=== PATIENT | female | born 1935 | race Caucasian/White ===

== ENCOUNTER 2018-09-23 23:45 | Inpatient (IN) | payer MEDICARE ==
--- NOTE | 2018-09-23 23:54 | ED Physician Chart ---
ED Chief Complaint/HPI - Patient Information Date Seen:: 09/23/18 Time Seen:: 23:40 Chief Complaint:: Agitation History of Present Illness:: onset x 3 days of agitation and hostile behavior; no report of trauma, H/As, SIs , S/T, neck pain, cough, C/P, SOB, Abd. Pain, A/N/V/D/C, fever, chills, or urinary s/s Allergies:: Allergies Allergy/AdvReac Type Severity Reaction Status Date / Time cilostazol [From Pletal] Allergy Verified 09/23/18 23:48 ciprofloxacin [From Cipro] Allergy Verified 09/23/18 23:48 Sulfa (Sulfonamide Allergy Verified 09/23/18 23:48 Antibiotics) [email or web address] Allergy Verified 09/23/18 23:48 Historian:: Patient, EMS Review:: Nurse's Note Reviewed, Old Chart Reviewed, EMS run form Reviewed ED Review of Systems - Review of Systems General/Constitutional: No fever, No chills, No weight loss, No weakness, No diaphoresis, No edema, No loss of appetite Skin: No skin lesions, No rash, No bruising Head: No headache, No light-headedness Eyes: No loss of vision, No pain, No diplopia ENT: No earache, No nasal drainage, No sore throat, No tinnitus Neck: No neck pain, No swelling, No thyromegaly, No stiffness, No mass noted Cardio Vascular: No chest pain, No palpitations, No PND, No orthopnea, No edema Pulmonary: No SOB, No cough, No sputum, No wheezing GI: No nausea, No vomiting, No diarrhea, No pain, No melena, No hematochezia, No constipation, No hematemesis G/U: No dysuria, No frequency, No hematuria, No nacturia [employer]: No vaginal discharge, No abnormal vaginal bleed, No contraction Musculoskeletal: No bone or joint pain, No back pain, No muscle pain Endocrine: No polyuria, No polydipsia Psychiatric: Prior psych history, Depression, Anxiety, No suicidal ideation, No homicidal ideation, No auditory hallucination, No visual hallucination Hematopoietic: No bruising, No lymphadenopathy Allergic/Immuno: No urticaria, No angioedema Neurological: No syncope, No focal symptoms, No weakness, No paresthesia, No headache, No seizure, No dizziness, No confusion, No vertigo ED Past Medical History - Past Medical History Obtainable: Yes Past Medical History: HTN, Dyslipidemia, Arthritis, Dementia Family History: HTN Social History: Non Smoker, No Alcohol, No Drug Use, , Care Facility Surgical History: None Psychiatricy History: Bipolar, Dementia Medication: Reviewed Family Medical History - Family Member Mother History Unknown: Yes ED Physical Exam - Physical Examination General/Constitutional: Awake, Well-developed, well-nourished, Alert, No distress, GCS 15, Non-toxic appearing, Ambulatory Head: Atraumatic Eyes: Lids, conjuctiva normal, PERRL, EOMI Skin: Nl inspection, No rash, No skin lesions, No ecchymosis, Well hydrated, No lymphadenopathy ENMT: External ears, nose nl, TM canals nl, Nasal exam nl, Lips, teeth, gums nl , Oropharynx nl, Tonsils nl Neck: Nontender, Full ROM w/o pain, No JVD, No nuchal rigidity, No bruit, No mass, No stridor Respiratory: Nl effort/Exclusion, Clear to Auscultation, No Wheeze/Rhonchi/Rales Cardio Vascular: RRR, No murmur, gallop, rubs, NL S1 S2 GI: No tenderness/rebounding/guarding, No organomegaly, No hernia, Normal BS's, Nondistended, No mass/bruits, No McBurney tenderness : No CVA tenderness Extremities: No tenderness or effusion, Full ROM, normal strength in all extremities, No edema, Normal digits & nails Neuro/Psych: Alert/oriented, DTR's symmetric, Normal sensory exam, Normal motor strength, Judgement/insight normal, Mood normal, Normal gait, No focal deficits Other Neuro/Psych comments:: + Psychomotor Agitation; no SIs; Mood/Affect: Labile Misc: Normal back, No paraspinal tenderness ED Labs/Radiology/EKG Results - Lab Results Comments:: Reviewed - EKG Interpretations EKG Time:: 00:05 Rate & Rhythm: 71; NSR Comments:: non-specific st-t changes ED Septic Shock - . Is Septic Shock (SBP<90, OR Lactate>4 mmol\L) present?: No ED Reassessment (Disposition) - Reassessment Reassessment Condition:: Improved - Diagnosis Diagnosis:: Agitation; Medical Clearance; Psychosis; Bipolar Disorder - Aftercare/Follow up Instructions Aftercare/Follow-Up Instructions:: Counseled pt regarding lab results/diagnosis & need follow up, Counseled pt & family regarding lab results/diagnosis & need follow up - Patient Disposition Discharge/Transfer:: Acute Care w/in this hosp Admitted to:: [facility] Condition at Disposition:: Stable, Improved
[2018-09-24 00:24] LABS: % EOSINOPHILS 5.4 % (0.0-5.0); % LYMPHOCYTES 20.6 % (20.0-50.0); % MONOCYTES 11.4 % (2.0-10.0); % NEUTROPHILS 61.6 % (40.0-80.0); BASOPHILE ABSOLUTE 0.1 Th/cumm (0-0.2); EOSINOPHILE ABSOLUTE 0.4 Th/cmm (0.1-0.4); HEMATOCRIT 29.5 % (41.0-60); HEMOGLOBIN 10.1 gm/dL (12-16); LYMPHOCYTE ABSOLUTE 1.7 Th/cmm (1.5-3.0); MEAN CELL VOLUME 87.6 fl (81-100); MEAN CORPUSCULAR HGB CONC 34.2 pg (28.0-36.0); MEAN PLATELET VOLUME 7.6 fl; MONOCYTE ABSOLUTE 0.9 Th/cmm (0.3-1.0); PLATELET COUNT 343 Th/cmm (150-400); RED BLOOD COUNT 3.36 Mil/cmm (3.80-5.20); WHITE BLOOD COUNT 8.1 Th/cmm (4.8-10.8)
[2018-09-24 00:35] LABS: ACETAMINOPHEN < 10.0 ug/mL (10.0-30.0); ALBUMIN 3.1 gm/dL (3.7-5.3); ALKALINE PHOSPHATASE 143 U/L (34-104); ANION GAP 11.1 (7.0-16.0); BILIRUBIN,TOTAL 0.2 mg/dL (0.3-1.0); BUN - UREA NITROGEN 42 mg/dL (7-25); CALCIUM SERUM 8.8 mg/dL (8.6-10.3); CARBON DIOXIDE 26.2 mEq/L (21.0-31.0); CHLORIDE 99 mEq/L (98-107); CHOLESTEROL 127 mg/dL (<200); CREATININE - SERUM 0.9 mg/dL (0.6-1.2); GLUCOSE 145 mg/dL (70-105); HDL -HIGH DENSITY LIPOPROTEIN 52 mg/dL (23-92); POTASSIUM SERUM 4.3 mEq/L (3.5-5.1); SGOT 33 U/L (13-39); SGPT/ALT 12 U/L (7-52); SODIUM SERUM 132 mEq/L (136-145); TOTAL PROTEIN,SERUM 6.2 gm/dL (6.0-8.3); TRIGLYCERIDES 70 mg/dL (<150)
[2018-09-24 00:39] LABS: SALICYLATES (ASPIRIN) < 25.0 mg/L (30.0-100.0)
[2018-09-24 00:59] LABS: URINE SOURCE CATH
[2018-09-24 01:02] LABS: URINE BILIRUBIN NEGATIVE (NEGATIVE); URINE BLOOD NEGATIVE (NEGATIVE); URINE GLUCOSE (UA) NEGATIVE (NEGATIVE); URINE KETONE TRACE mg/dL (NEGATIVE); URINE LEUKOCYTE ESTERASE NEGATIVE (NEGATIVE); URINE NITRATE NEGATIVE (NEGATIVE); URINE PH 5.5 (4.6 - 8.0); URINE PROTEIN NEGATIVE (NEGATIVE); URINE UROBILINOGEN 0.2 E.U./dL (0.2 - 1.0)
[2018-09-24 01:34] LABS: AMPHETAMINE URINE NEGATIVE (NEGATIVE); BARBITURATES URINE NEGATIVE (NEGATIVE); BENZODIAZEPINES QUAL URINE NEGATIVE (NEGATIVE); CANNABINOID THC NEGATIVE (NEGATIVE); COCAINE METABOLITE QUAL URINE NEGATIVE (NEGATIVE); METHADONE URINE NEGATIVE (NEGATIVE); METHAMPHETAMINES QUAL URINE NEGATIVE (NEGATIVE); OPIATES (MORPHINE) QUAL. URINE NEGATIVE (NEGATIVE); PHENCYCLIDINE (PCP) URINE NEGATIVE (NEGATIVE); TRICYCLICS (TCA) QUAL. URINE NEGATIVE (NEGATIVE)
[2018-09-24 01:38] LABS: URINE CLARITY CLEAR (CLEAR); URINE COLOR STRAW; URINE MICROSCOPIC INDICATED? YES
[2018-09-24 01:39] LABS: URINE EPITHELIAL CELLS FEW /lpf (FEW); URINE RBC NONE SEEN /hpf (0-5); URINE WBC 0-2 /hpf (0-5)
[2018-09-24 01:40] LABS: URINE BACTERIA NONE SEEN /hpf (NONE SEEN)
[2018-09-24] MEDS ORDERED: Magnesium Hydroxide (MOM) 30 mL UDC PO PRN ×2 (02:38→07:57)
[2018-09-24] MEDS ORDERED: Maalox 30 mL Cup PO PRN (02:38)
[2018-09-24 03:01] VITALS: BP 116/58
[2018-09-24] MEDS ORDERED: Fleet Enema 135 mL RC PRN (03:03)
[2018-09-24 08:03] LABS: CHOLESTEROL 142 mg/dL (<200); HDL -HIGH DENSITY LIPOPROTEIN 58 mg/dL (23-92); TRIGLYCERIDES 51 mg/dL (<150)
[2018-09-24] MEDS ORDERED: CETIRIZINE HCL 5 MG PO SCH (09:00)
[2018-09-24] MEDS ORDERED: Non-Formulary Item 1 EA (Cran/Vitc/Mannose/Fos/Bromeln [Uti-Stat Liquid] 30 ML) PO SCH (09:00)
[2018-09-24] MEDS ORDERED: Non-Formulary Item 1 EA (Cranberry Fruit Extract [Cranberry] 425 MG) PO SCH (09:00)
[2018-09-24] MEDS: Aspirin 81mg Chewable Tab PO SCH (09:33)
[2018-09-24] MEDS: Fluticasone Propionate Nasal 1 SPR SPR NS SCH (09:56)
[2018-09-24] MEDS: Tolterodine Tartrate 4 mg ER Cap PO SCH (09:56)
--- NOTE | 2018-09-24 10:22 | History & Physical ---
ADMIT DATE: 09/24/2018 This is her senior mental health admission. CHIEF COMPLAINT: Agitation. The patient had 3 days of agitation, very hostile behavior, brought to the ER with Dr. Bolanos saw the patient and cleared her for surgery complaining of no chest pain. No other problem. REVIEW OF SYSTEMS: Essentially the patient's agitation, otherwise negative. PAST MEDICAL HISTORY: Included hypertension, hyperlipidemia, arthritis, dementia and psychiatric history of bipolar disorder. PHYSICAL EXAMINATION: GENERAL: The patient is awake, alert. HEAD: Normal. ENT: Normal. NECK: Supple, nontender. LUNGS: Clear. CARDIOVASCULAR SYSTEM: S1, S2 heard. ABDOMEN: Soft. Bowel sounds are heard. CENTRAL NERVOUS SYSTEM: The patient has severe psychomotor agitation. The patient EKG was normal sinus rhythm, nonspecific ST-T changes, diagnosis of severe agitation, bipolar disorder, history of dementia, history of arthritis, history of hyperlipidemia, history of hypertension made and will followup with patient medically and live with psychiatrist. [facility]# [id number]
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
[2018-09-25] MEDS: Aspirin 81mg Chewable Tab PO SCH (09:20)
[2018-09-25] MEDS: Fluticasone Propionate Nasal 1 SPR SPR NS SCH (09:21)
[2018-09-25] MEDS: Tolterodine Tartrate 4 mg ER Cap PO SCH (09:22)
--- NOTE | 2018-09-25 14:26 | Internal Medicine Prog Note ---
Internal Medicine Subjective - Subjective Patient seen and examined:: chart reviewed Patient is:: awake, agitated, confused Per staff patient has:: agitated, tolerating meds Internal Medicine Objective - Results Result Diagrams: 09/23/18 00:00 09/23/18 00:00 Recent Labs: Laboratory Last Values WBC 8.1 Th/cmm (4.8-10.8) 09/23/18 00:00 RBC 3.36 Mil/cmm (3.80-5.20) L 09/23/18 00:00 Hgb 10.1 gm/dL (12-16) L 09/23/18 00:00 Hct 29.5 % (41.0-60) L 09/23/18 00:00 MCV 87.6 fl (81-100) 09/23/18 00:00 MCH 30.0 pg (27.0-31.0) 09/23/18 00:00 MCHC Differential 34.2 pg (28.0-36.0) 09/23/18 00:00 RDW 16.0 % (11.5-20.0) 09/23/18 00:00 Plt Count 343 Th/cmm (150-400) 09/23/18 00:00 MPV 7.6 fl 09/23/18 00:00 Neutrophils % 61.6 % (40.0-80.0) 09/23/18 00:00 Lymphocytes % 20.6 % (20.0-50.0) 09/23/18 00:00 Monocytes % 11.4 % (2.0-10.0) H 09/23/18 00:00 Eosinophils % 5.4 % (0.0-5.0) H 09/23/18 00:00 Basophils % 1.0 % (0.0-2.0) 09/23/18 00:00 Sodium 132 mEq/L (136-145) L 09/23/18 00:00 Potassium 4.3 mEq/L (3.5-5.1) 09/23/18 00:00 Chloride 99 mEq/L (98-107) 09/23/18 00:00 Carbon Dioxide 26.2 mEq/L (21.0-31.0) 09/23/18 00:00 Anion Gap 11.1 (7.0-16.0) 09/23/18 00:00 BUN 42 mg/dL (7-25) H 09/23/18 00:00 Creatinine 0.9 mg/dL (0.6-1.2) 09/23/18 00:00 Est GFR ( Amer) TNP 09/23/18 00:00 Est GFR (Non-Af Amer) TNP 09/23/18 00:00 BUN/Creatinine Ratio 46.7 09/23/18 00:00 Glucose 145 mg/dL (70-105) H 09/23/18 00:00 Calcium 8.8 mg/dL (8.6-10.3) 09/23/18 00:00 Total Bilirubin 0.2 mg/dL (0.3-1.0) L 09/23/18 00:00 AST 33 U/L (13-39) 09/23/18 00:00 ALT 12 U/L (7-52) 09/23/18 00:00 Alkaline Phosphatase 143 U/L (34-104) H 09/23/18 00:00 Troponin I 0.02 ng/mL (0.01-0.05) 09/23/18 00:00 Total Protein 6.2 gm/dL (6.0-8.3) 09/23/18 00:00 Albumin 3.1 gm/dL (3.7-5.3) L 09/23/18 00:00 Globulin 3.1 gm/dL 09/23/18 00:00 Albumin/Globulin Ratio 1.0 (1.0-1.8) 09/23/18 00:00 Triglycerides 51 mg/dL (<150) 09/24/18 07:29 Cholesterol 142 mg/dL (<200) 09/24/18 07:29 LDL Cholesterol Direct 77 mg/dL (75-193) 09/24/18 07:29 HDL Cholesterol 58 mg/dL (23-92) 09/24/18 07:29 TSH 2.21 uIU/ml (0.34-5.60) 09/23/18 00:00 Urine Source CATH 09/24/18 00:55 Urine Color STRAW 09/24/18 00:55 Urine Clarity CLEAR (CLEAR) 09/24/18 00:55 Urine pH 5.5 (4.6 - 8.0) 09/24/18 00:55 Ur Specific [place] 1.025 (1.005-1.030) 09/24/18 00:55 Urine Protein NEGATIVE mg/dL (NEGATIVE) 09/24/18 00:55 Urine Glucose (UA) NEGATIVE mg/dL (NEGATIVE) 09/24/18 00:55 Urine Ketones TRACE mg/dL (NEGATIVE) 18 00:55 Urine Blood NEGATIVE (NEGATIVE) 09/24/18 00:55 Urine Nitrate NEGATIVE (NEGATIVE) 09/24/18 00:55 Urine Bilirubin NEGATIVE (NEGATIVE) 09/24/18 00:55 Urine Urobilinogen 0.2 E.U./dL (0.2 - 1.0) 09/24/18 00:55 Ur Leukocyte Esterase NEGATIVE (NEGATIVE) 09/24/18 00:55 Urine RBC NONE SEEN /hpf (0-5) 09/24/18 00:55 Urine WBC 0-2 /hpf (0-5) 09/24/18 00:55 Ur Epithelial Cells FEW /lpf (FEW) 09/24/18 00:55 Urine Bacteria NONE SEEN /hpf (NONE SEEN) 09/24/18 00:55 Salicylates < 25.0 mg/L (30.0-100.0) L 09/23/18 00:00 Urine Opiates Screen NEGATIVE (NEGATIVE) 09/24/18 00:55 Urine Methadone Screen NEGATIVE (NEGATIVE) 09/24/18 00:55 Acetaminophen < 10.0 ug/mL (10.0-30.0) L 09/23/18 00:00 Ur Barbiturates Screen NEGATIVE (NEGATIVE) 09/24/18 00:55 Ur Tricyclics Screen NEGATIVE (NEGATIVE) 09/24/18 00:55 Ur Phencyclidine Scrn NEGATIVE (NEGATIVE) 09/24/18 00:55 Amphetamines Screen NEGATIVE (NEGATIVE) 09/24/18 00:55 U Methamphetamines Scrn NEGATIVE (NEGATIVE) 09/24/18 00:55 U Benzodiazepines Scrn NEGATIVE (NEGATIVE) 09/24/18 00:55 U Cocaine Metab Screen NEGATIVE (NEGATIVE) 09/24/18 00:55 U Cannabinoids Screen NEGATIVE (NEGATIVE) 09/24/18 00:55 Ethyl Alcohol < 10 mg/dL (0-10) 09/23/18 00:00 - Physical Exam Vitals and I&O: Vital Signs Temp 97.1 F 09/24/18 21:03 Pulse 86 09/24/18 21:24 Resp 20 09/24/18 21:03 BP 128/52 09/24/18 21:24 Pulse Ox 98 09/24/18 21:03 Intake & Output 09/24/18 09/25/18 09/25/18 18:59 06:59 18:59 Intake Total 800 120 Balance 800 120 Intake: Oral 800 120 Other: # Voids 3 3 # Bowel Movements 0 Active Medications: Current Medications Acetaminophen (Tylenol) 650 mg PO Q4HR PRN PRN Reason: Mild Pain / Temp above 100 Stop: 11/23/18 02:37 Acetaminophen (Tylenol) 650 mg PO Q4HR PRN PRN Reason: Pain (Mild) Stop: 11/23/18 07:56 Al Hydrox/Mg Hydrox/Simethicone (Maalox) 30 ml PO Q4HR PRN PRN Reason: GI DISTRESS Stop: 11/23/18 02:37 Aspirin (Aspirin Chewable) 81 mg PO DAILY [facility] Stop: 11/23/18 08:59 Last Admin: 09/25/18 09:20 Dose: 81 mg Bisacodyl (Dulcolax 10 Mg Supp) 10 mg RC DAILY PRN PRN Reason: Constipation Stop: 11/23/18 03:02 Buspirone HCl (Buspar) 10 mg PO BID [facility]; Protocol Stop: 11/23/18 08:59 Last Admin: 09/25/18 09:20 Dose: 10 mg Calcium Carbonate (Os-Daniel) 500 mg PO DAILY [facility] Stop: 11/23/18 08:59 Last Admin: 09/25/18 09:21 Dose: 500 mg Cholecalciferol (Vitamin D3) 1,000 iu PO DAILY [facility] Stop: 11/23/18 08:59 Last Admin: 09/25/18 09:22 Dose: 1,000 iu Cilostazol (Pletal) 100 mg PO BID [facility] Stop: 11/23/18 08:59 Last Admin: 09/25/18 09:24 Dose: Not Given Docusate Sodium (Colace) 100 mg PO BID [facility] Stop: 11/23/18 08:59 Last Admin: 09/25/18 09:21 Dose: 100 mg Donepezil HCl (Aricept) 10 mg PO HS [facility] Stop: 11/23/18 20:59 Last Admin: 09/24/18 21:22 Dose: 10 mg Famotidine (Pepcid) 20 mg PO BID [facility] Stop: 11/23/18 08:59 Last Admin: 09/25/18 09:21 Dose: 20 mg Fluticasone Propionate (Flonase) 2 spr NS DAILY [facility] Stop: 11/23/18 08:59 Last Admin: 09/25/18 09:21 Dose: 2 spr Gabapentin (Neurontin) 300 mg PO HS [facility] Stop: 11/23/18 20:59 Last Admin: 09/24/18 21:22 Dose: 300 mg Lorazepam (Ativan) 0.5 mg PO Q4HR PRN; Protocol PRN Reason: Anxiety Stop: 10/24/18 02:37 Magnesium Hydroxide (Milk Of Magnesia) 30 ml PO HS PRN PRN Reason: Constipation Stop: 11/23/18 07:56 Memantine (Namenda) 10 mg PO DAILY [facility] Stop: 11/23/18 08:59 Last Admin: 09/25/18 09:21 Dose: 10 mg Metoprolol Tartrate (Lopressor) 25 mg PO Q12HR [facility] Stop: 11/23/18 08:59 Last Admin: 09/25/18 09:21 Dose: Not Given Quetiapine Fumarate (Seroquel) 12.5 mg PO BID [facility]; Protocol Stop: 11/24/18 16:59 Sodium Phosphate (Fleet Enema) 135 ml RC Q48HR PRN PRN Reason: Constipation Stop: 11/23/18 03:02 Tolterodine Tartrate (Detrol La) 4 mg PO DAILY [facility] Stop: 11/23/18 08:59 Last Admin: 09/25/18 09:22 Dose: 4 mg Zolpidem Tartrate (Ambien) 5 mg PO HS PRN PRN Reason: Insomnia Stop: 11/23/18 02:37 General: demented HEENT: NC/AT Neck: Supple Lungs: CTAB Cardiovascular: Normal S1, Normal S2 Abdomen: soft, non-tender Extremities: clear Neurological: no change Internal Medicine Assmt/Plan - Assessment Assessment: severe agitation bipolar disease h/o dementia h/o arthritis h/o htn h/o hyperlipidemia - Plan Plan: as per psych will monitor
[2018-09-26] MEDS: Aspirin 81mg Chewable Tab PO SCH (09:23)
[2018-09-26] MEDS: Fluticasone Propionate Nasal 1 SPR SPR NS SCH (09:23)
[2018-09-26] MEDS: Tolterodine Tartrate 4 mg ER Cap PO SCH (09:24)
--- NOTE | 2018-09-26 16:22 | Progress Notes ---
DATE: 09/26/2018 SUBJECTIVE: The patient was seen at the hallway sitting in a Patricia chair. The patient is awake, but confused and easily gets agitated and frustrated, appears to be guarded. Otherwise, the patient is in no acute distress. OBJECTIVE: VITAL SIGNS: Temperature 97.8, heart rate 76, blood pressure 164/66, respirations 20, and 96% on room air. HEENT: Head is atraumatic and normocephalic. Eyes: Bilateral conjunctivae are clear. Bilateral pupils are equally round and reactive. NECK: Supple. No JVD. CARDIOVASCULAR: S1 and S2, without murmur. PULMONARY: Clear to auscultation. GASTROINTESTINAL: Soft and nontender without guarding. Positive bowel sounds. MUSCULOSKELETAL: No clubbing. No cyanosis noted. ASSESSMENT: 1. Psychosis. 2. Hypertension. 3. Hyperlipidemia. 4. Osteoarthritis. PLAN: We will keep the patient inpatient Psychiatric Unit. We will follow up with the psychiatrist to monitor the patient's condition and behavior. Treatment plans were discussed with the patient's nurse. Treatment plans were discussed with Dr. Iglesias. Also going to start the patient on clonidine 0.1 mg every 8 hours as needed for a systolic blood pressure above 160. JOB# [id number]
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
--- NOTE | 2018-09-27 06:45 | Progress Notes ---
DATE: 09/26/2018 SUBJECTIVE: The patient was seen and evaluated. The patient's chart reviewed. IDENTIFYING DATA: An 83-year-old female who [facility] because the patient became verbally and physically aggressive, during the hospital course, the patient mostly been disengaged, withdrawn, irritable, agitated. Today on [id number] evaluation, the patient is minimally interactive, difficult to engage in a linear conversation, easily derails. MEDICATIONS: Reviewed. BuSpar 10 mg p.o. b.i.d., vitamin D, Colace, Aricept 10 mg, Pepcid, Neurontin mg p.o. at bedtime, Ativan as needed, Namenda 10 mg p.o. every day, Seroquel at 12.5 b.i.d. with metoprolol and sodium phosphate. ASSESSMENT AND PLAN: The patient continues to be disorganized, easily derails in conversation and need a lot of redirection, unable to formulate a plan outside for environment. We will continue with primary psychiatrist's treatment plan and goals. JOB# [id number]
[2018-09-27] MEDS: Aspirin 81mg Chewable Tab PO SCH (09:37)
[2018-09-27] MEDS: Fluticasone Propionate Nasal 1 SPR SPR NS SCH (09:42)
--- NOTE | 2018-09-27 11:31 | Internal Medicine Prog Note ---
Internal Medicine Subjective - Subjective Patient seen and examined:: chart reviewed Patient is:: awake, agitated, confused Per staff patient has:: agitated, tolerating meds Internal Medicine Objective - Results Result Diagrams: 09/23/18 00:00 09/23/18 00:00 Recent Labs: Laboratory Last Values WBC 8.1 Th/cmm (4.8-10.8) 09/23/18 00:00 RBC 3.36 Mil/cmm (3.80-5.20) L 09/23/18 00:00 Hgb 10.1 gm/dL (12-16) L 09/23/18 00:00 Hct 29.5 % (41.0-60) L 09/23/18 00:00 MCV 87.6 fl (81-100) 09/23/18 00:00 MCH 30.0 pg (27.0-31.0) 09/23/18 00:00 MCHC Differential 34.2 pg (28.0-36.0) 09/23/18 00:00 RDW 16.0 % (11.5-20.0) 09/23/18 00:00 Plt Count 343 Th/cmm (150-400) 09/23/18 00:00 MPV 7.6 fl 09/23/18 00:00 Neutrophils % 61.6 % (40.0-80.0) 09/23/18 00:00 Lymphocytes % 20.6 % (20.0-50.0) 09/23/18 00:00 Monocytes % 11.4 % (2.0-10.0) H 09/23/18 00:00 Eosinophils % 5.4 % (0.0-5.0) H 09/23/18 00:00 Basophils % 1.0 % (0.0-2.0) 09/23/18 00:00 Sodium 132 mEq/L (136-145) L 09/23/18 00:00 Potassium 4.3 mEq/L (3.5-5.1) 09/23/18 00:00 Chloride 99 mEq/L (98-107) 09/23/18 00:00 Carbon Dioxide 26.2 mEq/L (21.0-31.0) 09/23/18 00:00 Anion Gap 11.1 (7.0-16.0) 09/23/18 00:00 BUN 42 mg/dL (7-25) H 09/23/18 00:00 Creatinine 0.9 mg/dL (0.6-1.2) 09/23/18 00:00 Est GFR ( Amer) TNP 09/23/18 00:00 Est GFR (Non-Af Amer) TNP 09/23/18 00:00 BUN/Creatinine Ratio 46.7 09/23/18 00:00 Glucose 145 mg/dL (70-105) H 09/23/18 00:00 Calcium 8.8 mg/dL (8.6-10.3) 09/23/18 00:00 Total Bilirubin 0.2 mg/dL (0.3-1.0) L 09/23/18 00:00 AST 33 U/L (13-39) 09/23/18 00:00 ALT 12 U/L (7-52) 09/23/18 00:00 Alkaline Phosphatase 143 U/L (34-104) H 09/23/18 00:00 Troponin I 0.02 ng/mL (0.01-0.05) 09/23/18 00:00 Total Protein 6.2 gm/dL (6.0-8.3) 09/23/18 00:00 Albumin 3.1 gm/dL (3.7-5.3) L 09/23/18 00:00 Globulin 3.1 gm/dL 09/23/18 00:00 Albumin/Globulin Ratio 1.0 (1.0-1.8) 09/23/18 00:00 Triglycerides 51 mg/dL (<150) 09/24/18 07:29 Cholesterol 142 mg/dL (<200) 09/24/18 07:29 LDL Cholesterol Direct 77 mg/dL (75-193) 09/24/18 07:29 HDL Cholesterol 58 mg/dL (23-92) 09/24/18 07:29 TSH 2.21 uIU/ml (0.34-5.60) 09/23/18 00:00 Urine Source CATH 09/24/18 00:55 Urine Color STRAW 09/24/18 00:55 Urine Clarity CLEAR (CLEAR) 09/24/18 00:55 Urine pH 5.5 (4.6 - 8.0) 09/24/18 00:55 Ur Specific [place] 1.025 (1.005-1.030) 09/24/18 00:55 Urine Protein NEGATIVE mg/dL (NEGATIVE) 09/24/18 00:55 Urine Glucose (UA) NEGATIVE mg/dL (NEGATIVE) 09/24/18 00:55 Urine Ketones TRACE mg/dL (NEGATIVE) 18 00:55 Urine Blood NEGATIVE (NEGATIVE) 09/24/18 00:55 Urine Nitrate NEGATIVE (NEGATIVE) 09/24/18 00:55 Urine Bilirubin NEGATIVE (NEGATIVE) 09/24/18 00:55 Urine Urobilinogen 0.2 E.U./dL (0.2 - 1.0) 09/24/18 00:55 Ur Leukocyte Esterase NEGATIVE (NEGATIVE) 09/24/18 00:55 Urine RBC NONE SEEN /hpf (0-5) 09/24/18 00:55 Urine WBC 0-2 /hpf (0-5) 09/24/18 00:55 Ur Epithelial Cells FEW /lpf (FEW) 09/24/18 00:55 Urine Bacteria NONE SEEN /hpf (NONE SEEN) 09/24/18 00:55 Salicylates < 25.0 mg/L (30.0-100.0) L 09/23/18 00:00 Urine Opiates Screen NEGATIVE (NEGATIVE) 09/24/18 00:55 Urine Methadone Screen NEGATIVE (NEGATIVE) 09/24/18 00:55 Acetaminophen < 10.0 ug/mL (10.0-30.0) L 09/23/18 00:00 Ur Barbiturates Screen NEGATIVE (NEGATIVE) 09/24/18 00:55 Ur Tricyclics Screen NEGATIVE (NEGATIVE) 09/24/18 00:55 Ur Phencyclidine Scrn NEGATIVE (NEGATIVE) 09/24/18 00:55 Amphetamines Screen NEGATIVE (NEGATIVE) 09/24/18 00:55 U Methamphetamines Scrn NEGATIVE (NEGATIVE) 09/24/18 00:55 U Benzodiazepines Scrn NEGATIVE (NEGATIVE) 09/24/18 00:55 U Cocaine Metab Screen NEGATIVE (NEGATIVE) 09/24/18 00:55 U Cannabinoids Screen NEGATIVE (NEGATIVE) 09/24/18 00:55 Ethyl Alcohol < 10 mg/dL (0-10) 09/23/18 00:00 RPR NONREACTIVE (NONREACTIVE) 09/23/18 00:00 - Physical Exam Vitals and I&O: Vital Signs Temp 97.2 F 09/27/18 06:30 Pulse 94 09/27/18 09:36 Resp 20 09/27/18 06:30 BP 166/96 09/27/18 09:36 Pulse Ox 96 09/27/18 06:30 Intake & Output 09/26/18 09/27/18 09/27/18 18:59 06:59 18:59 Intake Total 1000 120 Balance 1000 120 Intake: Oral 1000 120 Other: # Voids 4 1 # Bowel Movements 1 Active Medications: Current Medications Acetaminophen (Tylenol) 650 mg PO Q4HR PRN PRN Reason: Mild Pain / Temp above 100 Stop: 11/23/18 02:37 Acetaminophen (Tylenol) 650 mg PO Q4HR PRN PRN Reason: Pain (Mild) Stop: 11/23/18 07:56 Al Hydrox/Mg Hydrox/Simethicone (Maalox) 30 ml PO Q4HR PRN PRN Reason: GI DISTRESS Stop: 11/23/18 02:37 Aspirin (Aspirin Chewable) 81 mg PO DAILY [facility] Stop: 11/23/18 08:59 Last Admin: 09/27/18 09:37 Dose: 81 mg Bisacodyl (Dulcolax 10 Mg Supp) 10 mg RC DAILY PRN PRN Reason: Constipation Stop: 11/23/18 03:02 Buspirone HCl (Buspar) 10 mg PO BID [facility]; Protocol Stop: 11/23/18 08:59 Last Admin: 09/27/18 09:40 Dose: 10 mg Calcium Carbonate (Os-Daniel) 500 mg PO DAILY [facility] Stop: 11/23/18 08:59 Last Admin: 09/27/18 09:41 Dose: 500 mg Cholecalciferol (Vitamin D3) 1,000 iu PO DAILY [facility] Stop: 11/23/18 08:59 Last Admin: 09/27/18 09:37 Dose: 1,000 iu Docusate Sodium (Colace) 100 mg PO BID [facility] Stop: 11/23/18 08:59 Last Admin: 09/27/18 09:40 Dose: 100 mg Donepezil HCl (Aricept) 10 mg PO [facility] Stop: 11/23/18 20:59 Last Admin: 09/26/18 20:59 Dose: 10 mg Famotidine (Pepcid) 20 mg PO BID [facility] Stop: 11/23/18 08:59 Last Admin: 09/27/18 09:41 Dose: 20 mg Fluticasone Propionate (Flonase) 2 spr NS DAILY [facility] Stop: 11/23/18 08:59 Last Admin: 09/27/18 09:42 Dose: Not Given Gabapentin (Neurontin) 300 mg PO HS [facility] Stop: 11/23/18 20:59 Last Admin: 09/26/18 20:59 Dose: 300 mg Lorazepam (Ativan) 0.5 mg PO Q4HR PRN; Protocol PRN Reason: Anxiety Stop: 10/24/18 02:37 Last Admin: 09/26/18 16:44 Dose: 0.5 mg Magnesium Hydroxide (Milk Of Magnesia) 30 ml PO HS PRN PRN Reason: Constipation Stop: 11/23/18 07:56 Memantine (Namenda) 10 mg PO DAILY [facility] Stop: 11/23/18 08:59 Last Admin: 09/27/18 09:41 Dose: 10 mg Metoprolol Tartrate (Lopressor) 25 mg PO Q12HR [facility] Stop: 11/23/18 08:59 Last Admin: 09/27/18 09:36 Dose: 25 mg Quetiapine Fumarate (Seroquel) 12.5 mg PO BID [facility]; Protocol Stop: 11/24/18 16:59 Last Admin: 09/27/18 09:37 Dose: 12.5 mg Sodium Phosphate (Fleet Enema) 135 ml RC Q48HR PRN PRN Reason: Constipation Stop: 11/23/18 03:02 Tolterodine Tartrate (Detrol La) 4 mg PO DAILY [facility] Stop: 11/23/18 08:59 Last Admin: 09/26/18 09:24 Dose: 4 mg Zolpidem Tartrate (Ambien) 5 mg PO HS PRN PRN Reason: Insomnia Stop: 11/23/18 02:37 Last Admin: 09/26/18 20:59 Dose: 5 mg General: demented HEENT: NC/AT Neck: Supple Lungs: CTAB Cardiovascular: Normal S1, Normal S2 Abdomen: soft, non-tender Extremities: clear Neurological: no change Internal Medicine Assmt/Plan - Assessment Assessment: severe agitation bipolar disease h/o dementia h/o arthritis h/o htn h/o hyperlipidemia - Plan Plan: as per psych will monitor
[2018-09-27] MEDS: Tolterodine Tartrate 4 mg ER Cap PO SCH (16:10)
--- NOTE | 2018-09-28 03:28 | Progress Notes ---
DATE: 09/27/2018 SUBJECTIVE: Overnight, the patient's nursing staff is reporting that patient is easily irritable, easily agitated. Today on [id number] evaluation, disengaged, derails in conversation, and needing a lot of redirection. MENTAL STATUS EXAMINATION: Disorganized, delusional. ASSESSMENT AND PLAN: Today, the patient is delusional and easily derailed conversations. She is unable to formulate a safe plan. We will continue with the recent increase of Seroquel to target the patient's ongoing symptoms. JOB# [id number]
[2018-09-28] MEDS: Aspirin 81mg Chewable Tab PO SCH (09:17)
[2018-09-28] MEDS: Tolterodine Tartrate 4 mg ER Cap PO SCH (09:17)
[2018-09-28] MEDS: Fluticasone Propionate Nasal 1 SPR SPR NS SCH (09:17)
--- NOTE | 2018-09-28 10:31 | Internal Medicine Prog Note ---
Internal Medicine Subjective - Subjective Patient seen and examined:: chart reviewed Patient is:: awake, confused Per staff patient has:: tolerating meds Internal Medicine Objective - Results Result Diagrams: 09/23/18 00:00 09/23/18 00:00 Recent Labs: Laboratory Last Values WBC 8.1 Th/cmm (4.8-10.8) 09/23/18 00:00 RBC 3.36 Mil/cmm (3.80-5.20) L 09/23/18 00:00 Hgb 10.1 gm/dL (12-16) L 09/23/18 00:00 Hct 29.5 % (41.0-60) L 09/23/18 00:00 MCV 87.6 fl (81-100) 09/23/18 00:00 MCH 30.0 pg (27.0-31.0) 09/23/18 00:00 MCHC Differential 34.2 pg (28.0-36.0) 09/23/18 00:00 RDW 16.0 % (11.5-20.0) 09/23/18 00:00 Plt Count 343 Th/cmm (150-400) 09/23/18 00:00 MPV 7.6 fl 09/23/18 00:00 Neutrophils % 61.6 % (40.0-80.0) 09/23/18 00:00 Lymphocytes % 20.6 % (20.0-50.0) 09/23/18 00:00 Monocytes % 11.4 % (2.0-10.0) H 09/23/18 00:00 Eosinophils % 5.4 % (0.0-5.0) H 09/23/18 00:00 Basophils % 1.0 % (0.0-2.0) 09/23/18 00:00 Sodium 132 mEq/L (136-145) L 09/23/18 00:00 Potassium 4.3 mEq/L (3.5-5.1) 09/23/18 00:00 Chloride 99 mEq/L (98-107) 09/23/18 00:00 Carbon Dioxide 26.2 mEq/L (21.0-31.0) 09/23/18 00:00 Anion Gap 11.1 (7.0-16.0) 09/23/18 00:00 BUN 42 mg/dL (7-25) H 09/23/18 00:00 Creatinine 0.9 mg/dL (0.6-1.2) 09/23/18 00:00 Est GFR ( Amer) TNP 09/23/18 00:00 Est GFR (Non-Af Amer) TNP 09/23/18 00:00 BUN/Creatinine Ratio 46.7 09/23/18 00:00 Glucose 145 mg/dL (70-105) H 09/23/18 00:00 Calcium 8.8 mg/dL (8.6-10.3) 09/23/18 00:00 Total Bilirubin 0.2 mg/dL (0.3-1.0) L 09/23/18 00:00 AST 33 U/L (13-39) 09/23/18 00:00 ALT 12 U/L (7-52) 09/23/18 00:00 Alkaline Phosphatase 143 U/L (34-104) H 09/23/18 00:00 Troponin I 0.02 ng/mL (0.01-0.05) 09/23/18 00:00 Total Protein 6.2 gm/dL (6.0-8.3) 09/23/18 00:00 Albumin 3.1 gm/dL (3.7-5.3) L 09/23/18 00:00 Globulin 3.1 gm/dL 09/23/18 00:00 Albumin/Globulin Ratio 1.0 (1.0-1.8) 09/23/18 00:00 Triglycerides 51 mg/dL (<150) 09/24/18 07:29 Cholesterol 142 mg/dL (<200) 09/24/18 07:29 LDL Cholesterol Direct 77 mg/dL (75-193) 09/24/18 07:29 HDL Cholesterol 58 mg/dL (23-92) 09/24/18 07:29 TSH 2.21 uIU/ml (0.34-5.60) 09/23/18 00:00 Urine Source CATH 09/24/18 00:55 Urine Color STRAW 09/24/18 00:55 Urine Clarity CLEAR (CLEAR) 09/24/18 00:55 Urine pH 5.5 (4.6 - 8.0) 09/24/18 00:55 Ur Specific [place] 1.025 (1.005-1.030) 09/24/18 00:55 Urine Protein NEGATIVE mg/dL (NEGATIVE) 09/24/18 00:55 Urine Glucose (UA) NEGATIVE mg/dL (NEGATIVE) 09/24/18 00:55 Urine Ketones TRACE mg/dL (NEGATIVE) 18 00:55 Urine Blood NEGATIVE (NEGATIVE) 09/24/18 00:55 Urine Nitrate NEGATIVE (NEGATIVE) 09/24/18 00:55 Urine Bilirubin NEGATIVE (NEGATIVE) 09/24/18 00:55 Urine Urobilinogen 0.2 E.U./dL (0.2 - 1.0) 09/24/18 00:55 Ur Leukocyte Esterase NEGATIVE (NEGATIVE) 09/24/18 00:55 Urine RBC NONE SEEN /hpf (0-5) 09/24/18 00:55 Urine WBC 0-2 /hpf (0-5) 09/24/18 00:55 Ur Epithelial Cells FEW /lpf (FEW) 09/24/18 00:55 Urine Bacteria NONE SEEN /hpf (NONE SEEN) 09/24/18 00:55 Salicylates < 25.0 mg/L (30.0-100.0) L 09/23/18 00:00 Urine Opiates Screen NEGATIVE (NEGATIVE) 09/24/18 00:55 Urine Methadone Screen NEGATIVE (NEGATIVE) 09/24/18 00:55 Acetaminophen < 10.0 ug/mL (10.0-30.0) L 09/23/18 00:00 Ur Barbiturates Screen NEGATIVE (NEGATIVE) 09/24/18 00:55 Ur Tricyclics Screen NEGATIVE (NEGATIVE) 09/24/18 00:55 Ur Phencyclidine Scrn NEGATIVE (NEGATIVE) 09/24/18 00:55 Amphetamines Screen NEGATIVE (NEGATIVE) 09/24/18 00:55 U Methamphetamines Scrn NEGATIVE (NEGATIVE) 09/24/18 00:55 U Benzodiazepines Scrn NEGATIVE (NEGATIVE) 09/24/18 00:55 U Cocaine Metab Screen NEGATIVE (NEGATIVE) 09/24/18 00:55 U Cannabinoids Screen NEGATIVE (NEGATIVE) 09/24/18 00:55 Ethyl Alcohol < 10 mg/dL (0-10) 09/23/18 00:00 RPR NONREACTIVE (NONREACTIVE) 09/23/18 00:00 - Physical Exam Vitals and I&O: Vital Signs Temp 98.2 F 09/28/18 06:24 Pulse 78 09/28/18 06:24 Resp 19 09/28/18 06:24 BP 127/59 09/28/18 06:24 Pulse Ox 94 09/28/18 06:24 Intake & Output 09/27/18 09/28/18 09/28/18 18:59 06:59 18:59 Other: # Voids 3 # Bowel Movements 1 Active Medications: Current Medications Acetaminophen (Tylenol) 650 mg PO Q4HR PRN PRN Reason: Mild Pain / Temp above 100 Stop: 11/23/18 02:37 Acetaminophen (Tylenol) 650 mg PO Q4HR PRN PRN Reason: Pain (Mild) Stop: 11/23/18 07:56 Al Hydrox/Mg Hydrox/Simethicone (Maalox) 30 ml PO Q4HR PRN PRN Reason: GI DISTRESS Stop: 11/23/18 02:37 Aspirin (Aspirin Chewable) 81 mg PO DAILY [facility] Stop: 11/23/18 08:59 Last Admin: 09/28/18 09:17 Dose: Not Given Bisacodyl (Dulcolax 10 Mg Supp) 10 mg RC DAILY PRN PRN Reason: Constipation Stop: 11/23/18 03:02 Buspirone HCl (Buspar) 10 mg PO BID [facility]; Protocol Stop: 11/23/18 08:59 Last Admin: 09/28/18 09:17 Dose: Not Given Calcium Carbonate (Os-Daniel) 500 mg PO DAILY [facility] Stop: 11/23/18 08:59 Last Admin: 09/28/18 09:17 Dose: Not Given Cholecalciferol (Vitamin D3) 1,000 iu PO DAILY [facility] Stop: 11/23/18 08:59 Last Admin: 09/28/18 09:17 Dose: Not Given Docusate Sodium (Colace) 100 mg PO BID [facility] Stop: 11/23/18 08:59 Last Admin: 09/28/18 09:17 Dose: Not Given Donepezil HCl (Aricept) 10 mg PO HS [facility] Stop: 11/23/18 20:59 Last Admin: 09/27/18 21:13 Dose: 10 mg Famotidine (Pepcid) 20 mg PO BID [facility] Stop: 11/23/18 08:59 Last Admin: 09/28/18 09:17 Dose: Not Given Fluticasone Propionate (Flonase) 2 spr NS DAILY [facility] Stop: 11/23/18 08:59 Last Admin: 09/28/18 09:17 Dose: Not Given Gabapentin (Neurontin) 300 mg PO HS [facility] Stop: 11/23/18 20:59 Last Admin: 09/27/18 21:13 Dose: 300 mg Lorazepam (Ativan) 0.5 mg PO Q4HR PRN; Protocol PRN Reason: Anxiety Stop: 10/24/18 02:37 Last Admin: 09/26/18 16:44 Dose: 0.5 mg Magnesium Hydroxide (Milk Of Magnesia) 30 ml PO HS PRN PRN Reason: Constipation Stop: 11/23/18 07:56 Memantine (Namenda) 10 mg PO DAILY [facility] Stop: 11/23/18 08:59 Last Admin: 09/28/18 09:17 Dose: Not Given Metoprolol Tartrate (Lopressor) 25 mg PO Q12HR [facility] Stop: 11/23/18 08:59 Last Admin: 09/28/18 09:17 Dose: Not Given Quetiapine Fumarate (Seroquel) 12.5 mg PO BID [facility]; Protocol Stop: 11/24/18 16:59 Last Admin: 09/28/18 09:17 Dose: Not Given Sodium Phosphate (Fleet Enema) 135 ml RC Q48HR PRN PRN Reason: Constipation Stop: 11/23/18 03:02 Tolterodine Tartrate (Detrol La) 4 mg PO DAILY [facility] Stop: 11/23/18 08:59 Last Admin: 09/28/18 09:17 Dose: Not Given Zolpidem Tartrate (Ambien) 5 mg PO HS PRN PRN Reason: Insomnia Stop: 11/23/18 02:37 Last Admin: 09/27/18 21:13 Dose: 5 mg General: demented HEENT: NC/AT Neck: Supple Lungs: CTAB Cardiovascular: Normal S1, Normal S2 Abdomen: soft, non-tender Extremities: clear Neurological: no change Internal Medicine Assmt/Plan - Assessment Assessment: severe agitation bipolar disease h/o dementia h/o arthritis h/o htn h/o hyperlipidemia - Plan Plan: as per psych will monitor
[2018-09-29] MEDS: Aspirin 81mg Chewable Tab PO SCH (08:58)
[2018-09-29] MEDS: Tolterodine Tartrate 4 mg ER Cap PO SCH (08:59)
[2018-09-29] MEDS: Fluticasone Propionate Nasal 1 SPR SPR NS SCH (08:59)
--- NOTE | 2018-09-29 12:50 | Internal Medicine Prog Note ---
Internal Medicine Subjective - Subjective Service Date: 09/29/18 Patient is:: awake, confused Per staff patient has:: tolerating meds Internal Medicine Objective - Results Result Diagrams: 09/23/18 00:00 09/23/18 00:00 Recent Labs: Laboratory Last Values WBC 8.1 Th/cmm (4.8-10.8) 09/23/18 00:00 RBC 3.36 Mil/cmm (3.80-5.20) L 09/23/18 00:00 Hgb 10.1 gm/dL (12-16) L 09/23/18 00:00 Hct 29.5 % (41.0-60) L 09/23/18 00:00 MCV 87.6 fl (81-100) 09/23/18 00:00 MCH 30.0 pg (27.0-31.0) 09/23/18 00:00 MCHC Differential 34.2 pg (28.0-36.0) 09/23/18 00:00 RDW 16.0 % (11.5-20.0) 09/23/18 00:00 Plt Count 343 Th/cmm (150-400) 09/23/18 00:00 MPV 7.6 fl 09/23/18 00:00 Neutrophils % 61.6 % (40.0-80.0) 09/23/18 00:00 Lymphocytes % 20.6 % (20.0-50.0) 09/23/18 00:00 Monocytes % 11.4 % (2.0-10.0) H 09/23/18 00:00 Eosinophils % 5.4 % (0.0-5.0) H 09/23/18 00:00 Basophils % 1.0 % (0.0-2.0) 09/23/18 00:00 Sodium 132 mEq/L (136-145) L 09/23/18 00:00 Potassium 4.3 mEq/L (3.5-5.1) 09/23/18 00:00 Chloride 99 mEq/L (98-107) 09/23/18 00:00 Carbon Dioxide 26.2 mEq/L (21.0-31.0) 09/23/18 00:00 Anion Gap 11.1 (7.0-16.0) 09/23/18 00:00 BUN 42 mg/dL (7-25) H 09/23/18 00:00 Creatinine 0.9 mg/dL (0.6-1.2) 09/23/18 00:00 Est GFR ( Amer) TNP 09/23/18 00:00 Est GFR (Non-Af Amer) TNP 09/23/18 00:00 BUN/Creatinine Ratio 46.7 09/23/18 00:00 Glucose 145 mg/dL (70-105) H 09/23/18 00:00 Calcium 8.8 mg/dL (8.6-10.3) 09/23/18 00:00 Total Bilirubin 0.2 mg/dL (0.3-1.0) L 09/23/18 00:00 AST 33 U/L (13-39) 09/23/18 00:00 ALT 12 U/L (7-52) 09/23/18 00:00 Alkaline Phosphatase 143 U/L (34-104) H 09/23/18 00:00 Troponin I 0.02 ng/mL (0.01-0.05) 09/23/18 00:00 Total Protein 6.2 gm/dL (6.0-8.3) 09/23/18 00:00 Albumin 3.1 gm/dL (3.7-5.3) L 09/23/18 00:00 Globulin 3.1 gm/dL 09/23/18 00:00 Albumin/Globulin Ratio 1.0 (1.0-1.8) 09/23/18 00:00 Triglycerides 51 mg/dL (<150) 09/24/18 07:29 Cholesterol 142 mg/dL (<200) 09/24/18 07:29 LDL Cholesterol Direct 77 mg/dL (75-193) 09/24/18 07:29 HDL Cholesterol 58 mg/dL (23-92) 09/24/18 07:29 TSH 2.21 uIU/ml (0.34-5.60) 09/23/18 00:00 Urine Source CATH 09/24/18 00:55 Urine Color STRAW 09/24/18 00:55 Urine Clarity CLEAR (CLEAR) 09/24/18 00:55 Urine pH 5.5 (4.6 - 8.0) 09/24/18 00:55 Ur Specific [place] 1.025 (1.005-1.030) 09/24/18 00:55 Urine Protein NEGATIVE mg/dL (NEGATIVE) 09/24/18 00:55 Urine Glucose (UA) NEGATIVE mg/dL (NEGATIVE) 09/24/18 00:55 Urine Ketones TRACE mg/dL (NEGATIVE) 18 00:55 Urine Blood NEGATIVE (NEGATIVE) 09/24/18 00:55 Urine Nitrate NEGATIVE (NEGATIVE) 09/24/18 00:55 Urine Bilirubin NEGATIVE (NEGATIVE) 09/24/18 00:55 Urine Urobilinogen 0.2 E.U./dL (0.2 - 1.0) 09/24/18 00:55 Ur Leukocyte Esterase NEGATIVE (NEGATIVE) 09/24/18 00:55 Urine RBC NONE SEEN /hpf (0-5) 09/24/18 00:55 Urine WBC 0-2 /hpf (0-5) 09/24/18 00:55 Ur Epithelial Cells FEW /lpf (FEW) 09/24/18 00:55 Urine Bacteria NONE SEEN /hpf (NONE SEEN) 09/24/18 00:55 Salicylates < 25.0 mg/L (30.0-100.0) L 09/23/18 00:00 Urine Opiates Screen NEGATIVE (NEGATIVE) 09/24/18 00:55 Urine Methadone Screen NEGATIVE (NEGATIVE) 09/24/18 00:55 Acetaminophen < 10.0 ug/mL (10.0-30.0) L 09/23/18 00:00 Ur Barbiturates Screen NEGATIVE (NEGATIVE) 09/24/18 00:55 Ur Tricyclics Screen NEGATIVE (NEGATIVE) 09/24/18 00:55 Ur Phencyclidine Scrn NEGATIVE (NEGATIVE) 09/24/18 00:55 Amphetamines Screen NEGATIVE (NEGATIVE) 09/24/18 00:55 U Methamphetamines Scrn NEGATIVE (NEGATIVE) 09/24/18 00:55 U Benzodiazepines Scrn NEGATIVE (NEGATIVE) 09/24/18 00:55 U Cocaine Metab Screen NEGATIVE (NEGATIVE) 09/24/18 00:55 U Cannabinoids Screen NEGATIVE (NEGATIVE) 09/24/18 00:55 Ethyl Alcohol < 10 mg/dL (0-10) 09/23/18 00:00 RPR NONREACTIVE (NONREACTIVE) 09/23/18 00:00 - Physical Exam Vitals and I&O: Vital Signs Temp 97.3 F 09/28/18 20:15 Pulse 96 09/28/18 21:42 Resp 18 09/28/18 20:15 BP 146/73 09/28/18 21:42 Pulse Ox 93 09/28/18 20:15 Intake & Output 09/28/18 09/29/18 09/29/18 18:59 06:59 18:59 Intake Total 1100 120 Balance 1100 120 Intake: Oral 1100 120 Other: # Voids 2 # Bowel Movements 1 Active Medications: Current Medications Acetaminophen (Tylenol) 650 mg PO Q4HR PRN PRN Reason: Mild Pain / Temp above 100 Stop: 11/23/18 02:37 Acetaminophen (Tylenol) 650 mg PO Q4HR PRN PRN Reason: Pain (Mild) Stop: 11/23/18 07:56 Al Hydrox/Mg Hydrox/Simethicone (Maalox) 30 ml PO Q4HR PRN PRN Reason: GI DISTRESS Stop: 11/23/18 02:37 Aspirin (Aspirin Chewable) 81 mg PO DAILY [facility] Stop: 11/23/18 08:59 Last Admin: 09/29/18 08:58 Dose: 81 mg Bisacodyl (Dulcolax 10 Mg Supp) 10 mg RC DAILY PRN PRN Reason: Constipation Stop: 11/23/18 03:02 Buspirone HCl (Buspar) 10 mg PO BID [facility]; Protocol Stop: 11/23/18 08:59 Last Admin: 09/29/18 08:58 Dose: 10 mg Calcium Carbonate (Os-[place]) 500 mg PO DAILY [facility] Stop: 11/23/18 08:59 Last Admin: 09/29/18 08:58 Dose: 500 mg Cholecalciferol (Vitamin D3) 1,000 iu PO DAILY [facility] Stop: 11/23/18 08:59 Last Admin: 09/29/18 08:57 Dose: 1,000 iu Docusate Sodium (Colace) 100 mg PO BID [facility] Stop: 11/23/18 08:59 Last Admin: 09/29/18 08:57 Dose: 100 mg Donepezil HCl (Aricept) 10 mg PO HS [facility] Stop: 11/23/18 20:59 Last Admin: 09/28/18 21:41 Dose: 10 mg Famotidine (Pepcid) 20 mg PO BID [facility] Stop: 11/23/18 08:59 Last Admin: 09/29/18 08:58 Dose: 20 mg Fluticasone Propionate (Flonase) 2 spr NS DAILY [facility] Stop: 11/23/18 08:59 Last Admin: 09/29/18 08:59 Dose: Not Given Gabapentin (Neurontin) 300 mg PO HS [facility] Stop: 11/23/18 20:59 Last Admin: 09/28/18 21:41 Dose: 300 mg Lorazepam (Ativan) 0.5 mg PO Q4HR PRN; Protocol PRN Reason: Anxiety Stop: 10/24/18 02:37 Last Admin: 09/26/18 16:44 Dose: 0.5 mg Magnesium Hydroxide (Milk Of Magnesia) 30 ml PO HS PRN PRN Reason: Constipation Stop: 11/23/18 07:56 Memantine (Namenda) 10 mg PO DAILY [facility] Stop: 11/23/18 08:59 Last Admin: 09/29/18 08:57 Dose: 10 mg Metoprolol Tartrate (Lopressor) 25 mg PO Q12HR [facility] Stop: 11/23/18 08:59 Last Admin: 09/29/18 08:59 Dose: Not Given Quetiapine Fumarate (Seroquel) 25 mg PO BID [facility]; Protocol Stop: 11/27/18 16:59 Last Admin: 09/29/18 08:57 Dose: 25 mg Sodium Phosphate (Fleet Enema) 135 ml RC Q48HR PRN PRN Reason: Constipation Stop: 11/23/18 03:02 Tolterodine Tartrate (Detrol La) 4 mg PO DAILY [facility] Stop: 11/23/18 08:59 Last Admin: 09/29/18 08:59 Dose: Not Given Zolpidem Tartrate (Ambien) 5 mg PO HS PRN PRN Reason: Insomnia Stop: 11/23/18 02:37 Last Admin: 09/28/18 21:41 Dose: 5 mg General: demented HEENT: NC/AT Neck: Supple Lungs: CTAB Cardiovascular: Normal S1, Normal S2 Abdomen: soft, non-tender Extremities: clear Neurological: no change Internal Medicine Assmt/Plan - Assessment Assessment: severe agitation bipolar disease h/o dementia h/o arthritis h/o htn h/o hyperlipidemia - Plan Plan: cpm Nutritional Asmnt/Malnutr-PDOC - Dietary Evaluation Malnutrition Findings (Please click <Entered> for more info): Nutritional Asmnt/Malnutrition Start: 09/28/18 12: 42 Text: Status: Complete Freq: Protocol: Document 09/28/18 12:42 RADHA (Rec: 09/28/18 12:48 [email or web address] [email or web address]) Nutritional Asmnt/Malnutrition Patient General Information Nutritional Screening Moderate Risk Diagnosis psychosis NOS Pertinent Medical Hx/Surgical Hx HTN, dyslipidemia, arthritis, dementia, bipolar disorder Per nurse note: COPD, dermatitis, generalized muscle weakness, atherosclerotic heart disease, age related osteoporosis, PVD, polyneuropathy, Alzheimer's disease Subjective Information Pt sleeping at time of visit. Nursing noted PO intake: 75- 100%. Current Diet Order/ Nutrition Support SHAHID; ensure pudding TID Pertinent Medications Os-leelee, vit D3, colace, pepcid , seroquel Pertinent Labs 09/23: Na 132, BUN 42, glucose 145, Alb 3.1 Nutritional Hx/Data Height 5 ft 6 in Height (Calculated Centimeters) 167.6 Current Weight (lbs) 135 lb Weight (Calculated Kilograms) 61.2 Weight (Calculated Grams) [address]9616.0 [place] Body Weight 130 lb Body Mass Index (BMI) 21.7 Weight Status Approriate GI Symptoms GI Symptoms None Last BM 09/28 Difficult in: None Food Allergies No Skin Integrity/Comment: itching, intact, esequiel 15 Current %PO Good (75-100%) Estimated Nutritional Goals BEE in Kcals: Using Current wt Calories/Kcals/Kg 25-30 Kcals Calculated 2292-0438 Protein: Using Current wt Protein g/k.0 Protein Calculated 61 g Fluid: ml 3843-4213 (1 ml/kcal) Nutritional Problem 1. Problem Problem no nutrition dx at this time Malnutrition Alert Is there a minimum of two criteria No selected? Query Text:Check all the applicable criteria. A minimum of two criteria are recommended for diagnosis of either severe or non-severe malnutrition. Malnutrition Related to Morbid Obesity Malnutrition related to morbid obesity No Intervention/Recommendation Comments 1. Continue with SHAHID diet and ensure pudding TID as ordered 2. Consider starting CCHO diet if blood glucose continues to stay above normal limits 3. Monitor PO intake, wt, labs and skin integrity 4. F/U as moderate risk in 3-5 days, 10/01-10/03 Expected Outcomes/Goals Expected Outcomes/Goals 1. PO intake to continue meeting at least 75% of all meals 2. Wt stability, skin to remain intact, and nutrition related labs to approach normal limits Reviewed by Katelyn Abdalla RD
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
[2018-09-30] MEDS: Aspirin 81mg Chewable Tab PO SCH (09:09)
[2018-09-30] MEDS: Fluticasone Propionate Nasal 1 SPR SPR NS SCH (09:10)
[2018-09-30] MEDS: Tolterodine Tartrate 4 mg ER Cap PO SCH (09:10)
--- NOTE | 2018-09-30 14:16 | Internal Medicine Prog Note ---
Internal Medicine Subjective - Subjective Patient seen and examined:: chart reviewed Patient is:: awake, other (still confused) Per staff patient has:: no adverse event, tolerating meds Internal Medicine Objective - Results Result Diagrams: 09/23/18 00:00 09/23/18 00:00 Recent Labs: Laboratory Last Values WBC 8.1 Th/cmm (4.8-10.8) 09/23/18 00:00 RBC 3.36 Mil/cmm (3.80-5.20) L 09/23/18 00:00 Hgb 10.1 gm/dL (12-16) L 09/23/18 00:00 Hct 29.5 % (41.0-60) L 09/23/18 00:00 MCV 87.6 fl (81-100) 09/23/18 00:00 MCH 30.0 pg (27.0-31.0) 09/23/18 00:00 MCHC Differential 34.2 pg (28.0-36.0) 09/23/18 00:00 RDW 16.0 % (11.5-20.0) 09/23/18 00:00 Plt Count 343 Th/cmm (150-400) 09/23/18 00:00 MPV 7.6 fl 09/23/18 00:00 Neutrophils % 61.6 % (40.0-80.0) 09/23/18 00:00 Lymphocytes % 20.6 % (20.0-50.0) 09/23/18 00:00 Monocytes % 11.4 % (2.0-10.0) H 09/23/18 00:00 Eosinophils % 5.4 % (0.0-5.0) H 09/23/18 00:00 Basophils % 1.0 % (0.0-2.0) 09/23/18 00:00 Sodium 132 mEq/L (136-145) L 09/23/18 00:00 Potassium 4.3 mEq/L (3.5-5.1) 09/23/18 00:00 Chloride 99 mEq/L (98-107) 09/23/18 00:00 Carbon Dioxide 26.2 mEq/L (21.0-31.0) 09/23/18 00:00 Anion Gap 11.1 (7.0-16.0) 09/23/18 00:00 BUN 42 mg/dL (7-25) H 09/23/18 00:00 Creatinine 0.9 mg/dL (0.6-1.2) 09/23/18 00:00 Est GFR ( Amer) TNP 09/23/18 00:00 Est GFR (Non-Af Amer) TNP 09/23/18 00:00 BUN/Creatinine Ratio 46.7 09/23/18 00:00 Glucose 145 mg/dL (70-105) H 09/23/18 00:00 Calcium 8.8 mg/dL (8.6-10.3) 09/23/18 00:00 Total Bilirubin 0.2 mg/dL (0.3-1.0) L 09/23/18 00:00 AST 33 U/L (13-39) 09/23/18 00:00 ALT 12 U/L (7-52) 09/23/18 00:00 Alkaline Phosphatase 143 U/L (34-104) H 09/23/18 00:00 Troponin I 0.02 ng/mL (0.01-0.05) 09/23/18 00:00 Total Protein 6.2 gm/dL (6.0-8.3) 09/23/18 00:00 Albumin 3.1 gm/dL (3.7-5.3) L 09/23/18 00:00 Globulin 3.1 gm/dL 09/23/18 00:00 Albumin/Globulin Ratio 1.0 (1.0-1.8) 09/23/18 00:00 Triglycerides 51 mg/dL (<150) 09/24/18 07:29 Cholesterol 142 mg/dL (<200) 09/24/18 07:29 LDL Cholesterol Direct 77 mg/dL (75-193) 09/24/18 07:29 HDL Cholesterol 58 mg/dL (23-92) 09/24/18 07:29 TSH 2.21 uIU/ml (0.34-5.60) 09/23/18 00:00 Urine Source CATH 09/24/18 00:55 Urine Color STRAW 09/24/18 00:55 Urine Clarity CLEAR (CLEAR) 09/24/18 00:55 Urine pH 5.5 (4.6 - 8.0) 09/24/18 00:55 Ur Specific [place] 1.025 (1.005-1.030) 09/24/18 00:55 Urine Protein NEGATIVE mg/dL (NEGATIVE) 09/24/18 00:55 Urine Glucose (UA) NEGATIVE mg/dL (NEGATIVE) 09/24/18 00:55 Urine Ketones TRACE mg/dL (NEGATIVE) 18 00:55 Urine Blood NEGATIVE (NEGATIVE) 09/24/18 00:55 Urine Nitrate NEGATIVE (NEGATIVE) 09/24/18 00:55 Urine Bilirubin NEGATIVE (NEGATIVE) 09/24/18 00:55 Urine Urobilinogen 0.2 E.U./dL (0.2 - 1.0) 09/24/18 00:55 Ur Leukocyte Esterase NEGATIVE (NEGATIVE) 09/24/18 00:55 Urine RBC NONE SEEN /hpf (0-5) 09/24/18 00:55 Urine WBC 0-2 /hpf (0-5) 09/24/18 00:55 Ur Epithelial Cells FEW /lpf (FEW) 09/24/18 00:55 Urine Bacteria NONE SEEN /hpf (NONE SEEN) 09/24/18 00:55 Salicylates < 25.0 mg/L (30.0-100.0) L 09/23/18 00:00 Urine Opiates Screen NEGATIVE (NEGATIVE) 09/24/18 00:55 Urine Methadone Screen NEGATIVE (NEGATIVE) 09/24/18 00:55 Acetaminophen < 10.0 ug/mL (10.0-30.0) L 09/23/18 00:00 Ur Barbiturates Screen NEGATIVE (NEGATIVE) 09/24/18 00:55 Ur Tricyclics Screen NEGATIVE (NEGATIVE) 09/24/18 00:55 Ur Phencyclidine Scrn NEGATIVE (NEGATIVE) 09/24/18 00:55 Amphetamines Screen NEGATIVE (NEGATIVE) 09/24/18 00:55 U Methamphetamines Scrn NEGATIVE (NEGATIVE) 09/24/18 00:55 U Benzodiazepines Scrn NEGATIVE (NEGATIVE) 09/24/18 00:55 U Cocaine Metab Screen NEGATIVE (NEGATIVE) 09/24/18 00:55 U Cannabinoids Screen NEGATIVE (NEGATIVE) 09/24/18 00:55 Ethyl Alcohol < 10 mg/dL (0-10) 09/23/18 00:00 RPR NONREACTIVE (NONREACTIVE) 09/23/18 00:00 - Physical Exam Vitals and I&O: Vital Signs Temp 97.6 F 09/30/18 05:50 Pulse 110 09/30/18 05:50 Resp 18 09/30/18 05:50 BP 142/77 09/30/18 05:50 Pulse Ox 90 09/30/18 05:50 Intake & Output 09/29/18 09/30/18 09/30/18 18:59 06:59 18:59 Intake Total 180 Balance 180 Intake: Oral 180 Other: # Voids 2 # Bowel Movements 1 Active Medications: Current Medications Acetaminophen (Tylenol) 650 mg PO Q4HR PRN PRN Reason: Mild Pain / Temp above 100 Stop: 11/23/18 02:37 Al Hydrox/Mg Hydrox/Simethicone (Maalox) 30 ml PO Q4HR PRN PRN Reason: GI DISTRESS Stop: 11/23/18 02:37 Aspirin (Aspirin Chewable) 81 mg PO DAILY [facility] Stop: 11/23/18 08:59 Last Admin: 09/30/18 09:09 Dose: 81 mg Bisacodyl (Dulcolax 10 Mg Supp) 10 mg RC DAILY PRN PRN Reason: Constipation Stop: 11/23/18 03:02 Buspirone HCl (Buspar) 10 mg PO BID [facility]; Protocol Stop: 11/23/18 08:59 Last Admin: 09/30/18 09:09 Dose: 10 mg Calcium Carbonate (Os-Leelee) 500 mg PO DAILY [facility] Stop: 11/23/18 08:59 Last Admin: 09/30/18 09:09 Dose: 500 mg Cholecalciferol (Vitamin D3) 1,000 iu PO DAILY [facility] Stop: 11/23/18 08:59 Last Admin: 09/30/18 09:10 Dose: 1,000 iu Docusate Sodium (Colace) 100 mg PO BID [facility] Stop: 11/23/18 08:59 Last Admin: 09/30/18 09:09 Dose: 100 mg Donepezil HCl (Aricept) 10 mg PO HS [facility] Stop: 11/23/18 20:59 Last Admin: 09/29/18 21:47 Dose: Not Given Famotidine (Pepcid) 20 mg PO BID [facility] Stop: 11/23/18 08:59 Last Admin: 09/30/18 09:10 Dose: 20 mg Fluticasone Propionate (Flonase) 2 spr NS DAILY [facility] Stop: 11/23/18 08:59 Last Admin: 09/30/18 09:10 Dose: Not Given Gabapentin (Neurontin) 300 mg PO HS [facility] Stop: 11/23/18 20:59 Last Admin: 09/29/18 21:47 Dose: Not Given Lorazepam (Ativan) 0.5 mg PO Q4HR PRN; Protocol PRN Reason: Anxiety Stop: 10/24/18 02:37 Last Admin: 09/26/18 16:44 Dose: 0.5 mg Magnesium Hydroxide (Milk Of Magnesia) 30 ml PO HS PRN PRN Reason: Constipation Stop: 11/23/18 07:56 Memantine (Namenda) 10 mg PO DAILY [facility] Stop: 11/23/18 08:59 Last Admin: 09/30/18 09:09 Dose: 10 mg Metoprolol Tartrate (Lopressor) 25 mg PO Q12HR [facility] Stop: 11/23/18 08:59 Last Admin: 09/30/18 09:10 Dose: Not Given Quetiapine Fumarate (Seroquel) 25 mg PO BID [facility]; Protocol Stop: 11/27/18 16:59 Last Admin: 09/30/18 09:10 Dose: 25 mg Sodium Phosphate (Fleet Enema) 135 ml RC Q48HR PRN PRN Reason: Constipation Stop: 11/23/18 03:02 Tolterodine Tartrate (Detrol La) 4 mg PO DAILY [facility] Stop: 11/23/18 08:59 Last Admin: 09/30/18 09:10 Dose: 4 mg Zolpidem Tartrate (Ambien) 5 mg PO HS PRN PRN Reason: Insomnia Stop: 11/23/18 02:37 Last Admin: 09/28/18 21:41 Dose: 5 mg General: demented HEENT: NC/AT Neck: Supple Lungs: CTAB Cardiovascular: Normal S1, Normal S2 Abdomen: soft, non-tender Extremities: clear Neurological: no change Internal Medicine Assmt/Plan - Assessment Assessment: severe agitation bipolar disease h/o dementia h/o arthritis h/o htn h/o hyperlipidemia - Plan Plan: as per psych will monitor Nutritional Asmnt/Malnutr-PDOC - Dietary Evaluation Malnutrition Findings (Please click <Entered> for more info): Nutritional Asmnt/Malnutrition Start: 09/28/18 12: 42 Text: Status: Complete Freq: Protocol: Document 11/12/18 12:42 RADHA (Rec: 09/28/18 12:48 RADHA [email or web address]) Nutritional Asmnt/Malnutrition Patient General Information Nutritional Screening Moderate Risk Diagnosis psychosis NOS Pertinent Medical Hx/Surgical Hx HTN, dyslipidemia, arthritis, dementia, bipolar disorder Per nurse note: COPD, dermatitis, generalized muscle weakness, atherosclerotic heart disease, age related osteoporosis, PVD, polyneuropathy, Alzheimer's disease Subjective Information Pt sleeping at time of visit. Nursing noted PO intake: 75- 100%. Current Diet Order/ Nutrition Support SHAHID; ensure pudding TID Pertinent Medications Os-leelee, vit D3, colace, pepcid , seroquel Pertinent Labs 09/23: Na 132, BUN 42, glucose 145, Alb 3.1 Nutritional Hx/Data Height 1.68 m Height (Calculated Centimeters) 167.6 Current Weight (lbs) 61.235 kg Weight (Calculated Kilograms) 61.2 Weight (Calculated Grams) 58079.0 [place] Body Weight 130 lb Body Mass Index (BMI) 21.7 Weight Status Approriate GI Symptoms GI Symptoms None Last BM 09/28 Difficult in: None Food Allergies No Skin Integrity/Comment: itching, intact, esequiel 15 Current %PO Good (75-100%) Estimated Nutritional Goals BEE in Kcals: Using Current wt Calories/Kcals/Kg 25-30 Kcals Calculated 2144-6132 Protein: Using Current wt Protein g/k.0 Protein Calculated 61 g Fluid: ml 4589-2925 (1 ml/kcal) Nutritional Problem 1. Problem Problem no nutrition dx at this time Malnutrition Alert Is there a minimum of two criteria No selected? Query Text:Check all the applicable criteria. A minimum of two criteria are recommended for diagnosis of either severe or non-severe malnutrition. Malnutrition Related to Morbid Obesity Malnutrition related to morbid obesity No Intervention/Recommendation Comments 1. Continue with SHAHID diet and ensure pudding TID as ordered 2. Consider starting CCHO diet if blood glucose continues to stay above normal limits 3. Monitor PO intake, wt, labs and skin integrity 4. F/U as moderate risk in 3-5 days, 10/01-10/03 Expected Outcomes/Goals Expected Outcomes/Goals 1. PO intake to continue meeting at least 75% of all meals 2. Wt stability, skin to remain intact, and nutrition related labs to approach normal limits Reviewed by Katelyn Abdalla RD
[2018-10-01] MEDS: Tolterodine Tartrate 4 mg ER Cap PO SCH (09:24)
[2018-10-01] MEDS: Fluticasone Propionate Nasal 1 SPR SPR NS SCH (09:25)
[2018-10-01] MEDS: Aspirin 81mg Chewable Tab PO SCH (09:26)
--- NOTE | 2018-10-01 11:12 | Internal Medicine Prog Note ---
Internal Medicine Subjective - Subjective Service Date: 10/01/18 (noted with bilateral upper extremity rashes patient c/o itchiness) Patient is:: awake, other (still confused) Per staff patient has:: no adverse event, tolerating meds Internal Medicine Objective - Results Result Diagrams: 09/23/18 00:00 09/23/18 00:00 Recent Labs: Laboratory Last Values WBC 8.1 Th/cmm (4.8-10.8) 09/23/18 00:00 RBC 3.36 Mil/cmm (3.80-5.20) L 09/23/18 00:00 Hgb 10.1 gm/dL (12-16) L 09/23/18 00:00 Hct 29.5 % (41.0-60) L 09/23/18 00:00 MCV 87.6 fl (81-100) 09/23/18 00:00 MCH 30.0 pg (27.0-31.0) 09/23/18 00:00 MCHC Differential 34.2 pg (28.0-36.0) 09/23/18 00:00 RDW 16.0 % (11.5-20.0) 09/23/18 00:00 Plt Count 343 Th/cmm (150-400) 09/23/18 00:00 MPV 7.6 fl 09/23/18 00:00 Neutrophils % 61.6 % (40.0-80.0) 09/23/18 00:00 Lymphocytes % 20.6 % (20.0-50.0) 09/23/18 00:00 Monocytes % 11.4 % (2.0-10.0) H 09/23/18 00:00 Eosinophils % 5.4 % (0.0-5.0) H 09/23/18 00:00 Basophils % 1.0 % (0.0-2.0) 09/23/18 00:00 Sodium 132 mEq/L (136-145) L 09/23/18 00:00 Potassium 4.3 mEq/L (3.5-5.1) 09/23/18 00:00 Chloride 99 mEq/L (98-107) 09/23/18 00:00 Carbon Dioxide 26.2 mEq/L (21.0-31.0) 09/23/18 00:00 Anion Gap 11.1 (7.0-16.0) 09/23/18 00:00 BUN 42 mg/dL (7-25) H 09/23/18 00:00 Creatinine 0.9 mg/dL (0.6-1.2) 09/23/18 00:00 Est GFR ( Amer) TNP 09/23/18 00:00 Est GFR (Non-Af Amer) TNP 09/23/18 00:00 BUN/Creatinine Ratio 46.7 09/23/18 00:00 Glucose 145 mg/dL (70-105) H 09/23/18 00:00 Calcium 8.8 mg/dL (8.6-10.3) 09/23/18 00:00 Total Bilirubin 0.2 mg/dL (0.3-1.0) L 09/23/18 00:00 AST 33 U/L (13-39) 09/23/18 00:00 ALT 12 U/L (7-52) 09/23/18 00:00 Alkaline Phosphatase 143 U/L (34-104) H 09/23/18 00:00 Troponin I 0.02 ng/mL (0.01-0.05) 09/23/18 00:00 Total Protein 6.2 gm/dL (6.0-8.3) 09/23/18 00:00 Albumin 3.1 gm/dL (3.7-5.3) L 09/23/18 00:00 Globulin 3.1 gm/dL 09/23/18 00:00 Albumin/Globulin Ratio 1.0 (1.0-1.8) 09/23/18 00:00 Triglycerides 51 mg/dL (<150) 09/24/18 07:29 Cholesterol 142 mg/dL (<200) 09/24/18 07:29 LDL Cholesterol Direct 77 mg/dL (75-193) 09/24/18 07:29 HDL Cholesterol 58 mg/dL (23-92) 09/24/18 07:29 TSH 2.21 uIU/ml (0.34-5.60) 09/23/18 00:00 Urine Source CATH 09/24/18 00:55 Urine Color STRAW 09/24/18 00:55 Urine Clarity CLEAR (CLEAR) 09/24/18 00:55 Urine pH 5.5 (4.6 - 8.0) 09/24/18 00:55 Ur Specific [place] 1.025 (1.005-1.030) 09/24/18 00:55 Urine Protein NEGATIVE mg/dL (NEGATIVE) 09/24/18 00:55 Urine Glucose (UA) NEGATIVE mg/dL (NEGATIVE) 09/24/18 00:55 Urine Ketones TRACE mg/dL (NEGATIVE) 09/24/18 00:55 Urine Blood NEGATIVE (NEGATIVE) 09/24/18 00:55 Urine Nitrate NEGATIVE (NEGATIVE) 09/24/18 00:55 Urine Bilirubin NEGATIVE (NEGATIVE) 09/24/18 00:55 Urine Urobilinogen 0.2 E.U./dL (0.2 - 1.0) 09/24/18 00:55 Ur Leukocyte Esterase NEGATIVE (NEGATIVE) 09/24/18 00:55 Urine RBC NONE SEEN /hpf (0-5) 09/24/18 00:55 Urine WBC 0-2 /hpf (0-5) 09/24/18 00:55 Ur Epithelial Cells FEW /lpf (FEW) 09/24/18 00:55 Urine Bacteria NONE SEEN /hpf (NONE SEEN) 09/24/18 00:55 Salicylates < 25.0 mg/L (30.0-100.0) L 09/23/18 00:00 Urine Opiates Screen NEGATIVE (NEGATIVE) 09/24/18 00:55 Urine Methadone Screen NEGATIVE (NEGATIVE) 09/24/18 00:55 Acetaminophen < 10.0 ug/mL (10.0-30.0) L 09/23/18 00:00 Ur Barbiturates Screen NEGATIVE (NEGATIVE) 09/24/18 00:55 Ur Tricyclics Screen NEGATIVE (NEGATIVE) 09/24/18 00:55 Ur Phencyclidine Scrn NEGATIVE (NEGATIVE) 09/24/18 00:55 Amphetamines Screen NEGATIVE (NEGATIVE) 09/24/18 00:55 U Methamphetamines Scrn NEGATIVE (NEGATIVE) 09/24/18 00:55 U Benzodiazepines Scrn NEGATIVE (NEGATIVE) 09/24/18 00:55 U Cocaine Metab Screen NEGATIVE (NEGATIVE) 09/24/18 00:55 U Cannabinoids Screen NEGATIVE (NEGATIVE) 09/24/18 00:55 Ethyl Alcohol < 10 mg/dL (0-10) 09/23/18 00:00 RPR NONREACTIVE (NONREACTIVE) 09/23/18 00:00 - Physical Exam Vitals and I&O: Vital Signs Temp 97.1 F 10/01/18 06:51 Pulse 102 10/01/18 09:24 Resp 18 10/01/18 06:51 BP 105/64 10/01/18 09:24 Pulse Ox 96 10/01/18 06:51 Intake & Output 09/30/18 10/01/18 10/01/18 18:59 06:59 18:59 Intake Total 700 120 Balance 700 120 Intake: Oral 700 120 Other: # Voids 2 3 # Bowel Movements 0 Active Medications: Current Medications Acetaminophen (Tylenol) 650 mg PO Q4HR PRN PRN Reason: Mild Pain / Temp above 100 Stop: 11/23/18 02:37 Al Hydrox/Mg Hydrox/Simethicone (Maalox) 30 ml PO Q4HR PRN PRN Reason: GI DISTRESS Stop: 11/23/18 02:37 Aspirin (Aspirin Chewable) 81 mg PO DAILY [facility] Stop: 11/23/18 08:59 Last Admin: 10/01/18 09:26 Dose: 81 mg Bisacodyl (Dulcolax 10 Mg Supp) 10 mg RC DAILY PRN PRN Reason: Constipation Stop: 11/23/18 03:02 Buspirone HCl (Buspar) 10 mg PO BID [facility]; Protocol Stop: 11/23/18 08:59 Last Admin: 10/01/18 09:26 Dose: 10 mg Calcium Carbonate (Os-Leelee) 500 mg PO DAILY [facility] Stop: 11/23/18 08:59 Last Admin: 10/01/18 09:26 Dose: 500 mg Cholecalciferol (Vitamin D3) 1,000 iu PO DAILY [facility] Stop: 11/23/18 08:59 Last Admin: 10/01/18 09:26 Dose: 1,000 iu Docusate Sodium (Colace) 100 mg PO BID [facility] Stop: 11/23/18 08:59 Last Admin: 10/01/18 09:26 Dose: 100 mg Donepezil HCl (Aricept) 10 mg PO HS [facility] Stop: 11/23/18 20:59 Last Admin: 09/30/18 20:32 Dose: 10 mg Famotidine (Pepcid) 20 mg PO BID [facility] Stop: 11/23/18 08:59 Last Admin: 10/01/18 09:26 Dose: 20 mg Fluticasone Propionate (Flonase) 2 spr NS DAILY [facility] Stop: 11/23/18 08:59 Last Admin: 10/01/18 09:25 Dose: 1 spr Gabapentin (Neurontin) 300 mg PO HS [facility] Stop: 11/23/18 20:59 Last Admin: 09/30/18 20:31 Dose: 300 mg Lorazepam (Ativan) 0.5 mg PO Q4HR PRN; Protocol PRN Reason: Anxiety Stop: 10/24/18 02:37 Last Admin: 09/26/18 16:44 Dose: 0.5 mg Magnesium Hydroxide (Milk Of Magnesia) 30 ml PO HS PRN PRN Reason: Constipation Stop: 11/23/18 07:56 Memantine (Namenda) 10 mg PO DAILY [facility] Stop: 11/23/18 08:59 Last Admin: 10/01/18 09:26 Dose: 10 mg Metoprolol Tartrate (Lopressor) 25 mg PO Q12HR [facility] Stop: 11/23/18 08:59 Last Admin: 10/01/18 09:24 Dose: 25 mg Quetiapine Fumarate (Seroquel) 25 mg PO BID [facility]; Protocol Stop: 11/27/18 16:59 Last Admin: 10/01/18 09:26 Dose: 25 mg Sodium Phosphate (Fleet Enema) 135 ml RC Q48HR PRN PRN Reason: Constipation Stop: 11/23/18 03:02 Tolterodine Tartrate (Detrol La) 4 mg PO DAILY [facility] Stop: 11/23/18 08:59 Last Admin: 10/01/18 09:24 Dose: 4 mg Zolpidem Tartrate (Ambien) 5 mg PO HS PRN PRN Reason: Insomnia Stop: 11/23/18 02:37 Last Admin: 09/28/18 21:41 Dose: 5 mg General: demented HEENT: NC/AT Neck: Supple Lungs: CTAB Cardiovascular: Normal S1, Normal S2 Abdomen: soft, non-tender Extremities: clear Neurological: no change Internal Medicine Assmt/Plan - Assessment Assessment: bilateral upper ext rashes severe agitation bipolar disease h/o dementia h/o arthritis h/o htn h/o hyperlipidemia - Plan Plan: elimite x1 prophylactic. cpm Nutritional Asmnt/Malnutr-PDOC - Dietary Evaluation Malnutrition Findings (Please click <Entered> for more info): Nutritional Asmnt/Malnutrition Start: 09/28/18 12: 42 Text: Status: Complete Freq: Protocol: Document 09/28/18 12:42 RADHA (Rec: 09/28/18 12:48 RADHA [email or web address]) Nutritional Asmnt/Malnutrition Patient General Information Nutritional Screening Moderate Risk Diagnosis psychosis NOS Pertinent Medical Hx/Surgical Hx HTN, dyslipidemia, arthritis, dementia, bipolar disorder Per nurse note: COPD, dermatitis, generalized muscle weakness, atherosclerotic heart disease, age related osteoporosis, PVD, polyneuropathy, Alzheimer's disease Subjective Information Pt sleeping at time of visit. Nursing noted PO intake: 75- 100%. Current Diet Order/ Nutrition Support SHAHID; ensure pudding TID Pertinent Medications Os-leelee, vit D3, colace, pepcid , seroquel Pertinent Labs 09/23: Na 132, BUN 42, glucose 145, Alb 3.1 Nutritional Hx/Data Height 5 ft 6 in Height (Calculated Centimeters) 167.6 Current Weight (lbs) 135 lb Weight (Calculated Kilograms) 61.2 Weight (Calculated Grams) 57412.0 [place] Body Weight 130 lb Body Mass Index (BMI) 21.7 Weight Status Approriate GI Symptoms GI Symptoms None Last BM 09/28 Difficult in: None Food Allergies No Skin Integrity/Comment: itching, intact, esequiel 15 Current %PO Good (75-100%) Estimated Nutritional Goals BEE in Kcals: Using Current wt Calories/Kcals/Kg 25-30 Kcals Calculated 7154-1046 Protein: Using Current wt Protein g/k.0 Protein Calculated 61 g Fluid: ml 6552-0526 (1 ml/kcal) Nutritional Problem 1. Problem Problem no nutrition dx at this time Malnutrition Alert Is there a minimum of two criteria No selected? Query Text:Check all the applicable criteria. A minimum of two criteria are recommended for diagnosis of either severe or non-severe malnutrition. Malnutrition Related to Morbid Obesity Malnutrition related to morbid obesity No Intervention/Recommendation Comments 1. Continue with SHAHID diet and ensure pudding TID as ordered 2. Consider starting CCHO diet if blood glucose continues to stay above normal limits 3. Monitor PO intake, wt, labs and skin integrity 4. F/U as moderate risk in 3-5 days, 10/01-10/03 Expected Outcomes/Goals Expected Outcomes/Goals 1. PO intake to continue meeting at least 75% of all meals 2. Wt stability, skin to remain intact, and nutrition related labs to approach normal limits Reviewed by Katelyn Abdalla RD
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
[2018-10-02] MEDS: Aspirin 81mg Chewable Tab PO SCH (10:42)
[2018-10-02] MEDS: Fluticasone Propionate Nasal 1 SPR SPR NS SCH (10:43)
[2018-10-02] MEDS: Tolterodine Tartrate 4 mg ER Cap PO SCH (10:46)
--- NOTE | 2018-10-02 14:59 | Internal Medicine Prog Note ---
Internal Medicine Subjective - Subjective Patient seen and examined:: chart reviewed Patient is:: awake, other (still confused, psychotic ) Per staff patient has:: no adverse event, tolerating meds Internal Medicine Objective - Results Result Diagrams: 09/23/18 00:00 09/23/18 00:00 Recent Labs: Laboratory Last Values WBC 8.1 Th/cmm (4.8-10.8) 09/23/18 00:00 RBC 3.36 Mil/cmm (3.80-5.20) L 09/23/18 00:00 Hgb 10.1 gm/dL (12-16) L 09/23/18 00:00 Hct 29.5 % (41.0-60) L 09/23/18 00:00 MCV 87.6 fl (81-100) 09/23/18 00:00 MCH 30.0 pg (27.0-31.0) 09/23/18 00:00 MCHC Differential 34.2 pg (28.0-36.0) 09/23/18 00:00 RDW 16.0 % (11.5-20.0) 09/23/18 00:00 Plt Count 343 Th/cmm (150-400) 09/23/18 00:00 MPV 7.6 fl 09/23/18 00:00 Neutrophils % 61.6 % (40.0-80.0) 09/23/18 00:00 Lymphocytes % 20.6 % (20.0-50.0) 09/23/18 00:00 Monocytes % 11.4 % (2.0-10.0) H 09/23/18 00:00 Eosinophils % 5.4 % (0.0-5.0) H 09/23/18 00:00 Basophils % 1.0 % (0.0-2.0) 09/23/18 00:00 Sodium 132 mEq/L (136-145) L 09/23/18 00:00 Potassium 4.3 mEq/L (3.5-5.1) 09/23/18 00:00 Chloride 99 mEq/L (98-107) 09/23/18 00:00 Carbon Dioxide 26.2 mEq/L (21.0-31.0) 09/23/18 00:00 Anion Gap 11.1 (7.0-16.0) 09/23/18 00:00 BUN 42 mg/dL (7-25) H 09/23/18 00:00 Creatinine 0.9 mg/dL (0.6-1.2) 09/23/18 00:00 Est GFR ( Amer) TNP 11 00:00 Est GFR (Non-Af Amer) TNP 09/23/18 00:00 BUN/Creatinine Ratio 46.7 09/23/18 00:00 Glucose 145 mg/dL (70-105) H 09/23/18 00:00 Calcium 8.8 mg/dL (8.6-10.3) 09/23/18 00:00 Total Bilirubin 0.2 mg/dL (0.3-1.0) L 09/23/18 00:00 AST 33 U/L (13-39) 09/23/18 00:00 ALT 12 U/L (7-52) 09/23/18 00:00 Alkaline Phosphatase 143 U/L (34-104) H 09/23/18 00:00 Troponin I 0.02 ng/mL (0.01-0.05) 09/23/18 00:00 Total Protein 6.2 gm/dL (6.0-8.3) 09/23/18 00:00 Albumin 3.1 gm/dL (3.7-5.3) L 09/23/18 00:00 Globulin 3.1 gm/dL 09/23/18 00:00 Albumin/Globulin Ratio 1.0 (1.0-1.8) 09/23/18 00:00 Triglycerides 51 mg/dL (<150) 09/24/18 07:29 Cholesterol 142 mg/dL (<200) 09/24/18 07:29 LDL Cholesterol Direct 77 mg/dL (75-193) 09/24/18 07:29 HDL Cholesterol 58 mg/dL (23-92) 09/24/18 07:29 TSH 2.21 uIU/ml (0.34-5.60) 09/23/18 00:00 Urine Source CATH 09/24/18 00:55 Urine Color STRAW 09/24/18 00:55 Urine Clarity CLEAR (CLEAR) 09/24/18 00:55 Urine pH 5.5 (4.6 - 8.0) 09/24/18 00:55 Ur Specific [place] 1.025 (1.005-1.030) 09/24/18 00:55 Urine Protein NEGATIVE mg/dL (NEGATIVE) 09/24/18 00:55 Urine Glucose (UA) NEGATIVE mg/dL (NEGATIVE) 09/24/18 00:55 Urine Ketones TRACE mg/dL (NEGATIVE) 09/24/18 00:55 Urine Blood NEGATIVE (NEGATIVE) 09/24/18 00:55 Urine Nitrate NEGATIVE (NEGATIVE) 09/24/18 00:55 Urine Bilirubin NEGATIVE (NEGATIVE) 09/24/18 00:55 Urine Urobilinogen 0.2 E.U./dL (0.2 - 1.0) 09/24/18 00:55 Ur Leukocyte Esterase NEGATIVE (NEGATIVE) 09/24/18 00:55 Urine RBC NONE SEEN /hpf (0-5) 09/24/18 00:55 Urine WBC 0-2 /hpf (0-5) 09/24/18 00:55 Ur Epithelial Cells FEW /lpf (FEW) 09/24/18 00:55 Urine Bacteria NONE SEEN /hpf (NONE SEEN) 09/24/18 00:55 Salicylates < 25.0 mg/L (30.0-100.0) L 09/23/18 00:00 Urine Opiates Screen NEGATIVE (NEGATIVE) 09/24/18 00:55 Urine Methadone Screen NEGATIVE (NEGATIVE) 09/24/18 00:55 Acetaminophen < 10.0 ug/mL (10.0-30.0) L 09/23/18 00:00 Ur Barbiturates Screen NEGATIVE (NEGATIVE) 09/24/18 00:55 Ur Tricyclics Screen NEGATIVE (NEGATIVE) 09/24/18 00:55 Ur Phencyclidine Scrn NEGATIVE (NEGATIVE) 09/24/18 00:55 Amphetamines Screen NEGATIVE (NEGATIVE) 09/24/18 00:55 U Methamphetamines Scrn NEGATIVE (NEGATIVE) 09/24/18 00:55 U Benzodiazepines Scrn NEGATIVE (NEGATIVE) 09/24/18 00:55 U Cocaine Metab Screen NEGATIVE (NEGATIVE) 09/24/18 00:55 U Cannabinoids Screen NEGATIVE (NEGATIVE) 09/24/18 00:55 Ethyl Alcohol < 10 mg/dL (0-10) 09/23/18 00:00 RPR NONREACTIVE (NONREACTIVE) 09/23/18 00:00 - Physical Exam Vitals and I&O: Vital Signs Temp 97.5 F 10/02/18 14:00 Pulse 98 10/02/18 14:00 Resp 21 10/02/18 14:00 BP 115/55 10/02/18 14:00 Pulse Ox 96 10/02/18 14:00 Intake & Output 10/01/18 10/02/18 10/02/18 18:59 06:59 18:59 Intake Total 120 Balance 120 Intake: Oral 120 Other: # Voids 1 Active Medications: Current Medications Acetaminophen (Tylenol) 650 mg PO Q4HR PRN PRN Reason: Mild Pain / Temp above 100 Stop: 11/23/18 02:37 Al Hydrox/Mg Hydrox/Simethicone (Maalox) 30 ml PO Q4HR PRN PRN Reason: GI DISTRESS Stop: 11/23/18 02:37 Aspirin (Aspirin Chewable) 81 mg PO DAILY [facility] Stop: 11/23/18 08:59 Last Admin: 10/02/18 10:42 Dose: Not Given Bisacodyl (Dulcolax 10 Mg Supp) 10 mg RC DAILY PRN PRN Reason: Constipation Stop: 11/23/18 03:02 Buspirone HCl (Buspar) 10 mg PO BID [facility]; Protocol Stop: 11/23/18 08:59 Last Admin: 10/02/18 10:43 Dose: Not Given Calcium Carbonate (Os-Leelee) 500 mg PO DAILY [facility] Stop: 11/23/18 08:59 Last Admin: 10/02/18 10:43 Dose: Not Given Cholecalciferol (Vitamin D3) 1,000 iu PO DAILY [facility] Stop: 11/23/18 08:59 Last Admin: 10/02/18 10:43 Dose: Not Given Docusate Sodium (Colace) 100 mg PO BID [facility] Stop: 11/23/18 08:59 Last Admin: 10/02/18 10:43 Dose: Not Given Donepezil HCl (Aricept) 10 mg PO HS [facility] Stop: 11/23/18 20:59 Last Admin: 10/01/18 21:27 Dose: Not Given Famotidine (Pepcid) 20 mg PO BID [facility] Stop: 11/23/18 08:59 Last Admin: 10/02/18 10:43 Dose: Not Given Fluticasone Propionate (Flonase) 2 spr NS DAILY [facility] Stop: 11/23/18 08:59 Last Admin: 10/02/18 10:43 Dose: Not Given Gabapentin (Neurontin) 300 mg PO HS [facility] Stop: 11/23/18 20:59 Last Admin: 10/01/18 21:26 Dose: Not Given Lorazepam (Ativan) 0.5 mg PO Q4HR PRN; Protocol PRN Reason: Anxiety Stop: 10/24/18 02:37 Last Admin: 09/26/18 16:44 Dose: 0.5 mg Magnesium Hydroxide (Milk Of Magnesia) 30 ml PO HS PRN PRN Reason: Constipation Stop: 11/23/18 07:56 Memantine (Namenda) 10 mg PO DAILY [facility] Stop: 11/23/18 08:59 Last Admin: 10/02/18 10:43 Dose: Not Given Metoprolol Tartrate (Lopressor) 25 mg PO Q12HR [facility] Stop: 11/23/18 08:59 Last Admin: 10/02/18 10:44 Dose: Not Given Quetiapine Fumarate (Seroquel) 25 mg PO BID [facility]; Protocol Stop: 11/27/18 16:59 Last Admin: 10/02/18 10:46 Dose: Not Given Sodium Phosphate (Fleet Enema) 135 ml RC Q48HR PRN PRN Reason: Constipation Stop: 11/23/18 03:02 Tolterodine Tartrate (Detrol La) 4 mg PO DAILY [facility] Stop: 11/23/18 08:59 Last Admin: 10/02/18 10:46 Dose: Not Given Zolpidem Tartrate (Ambien) 5 mg PO HS PRN PRN Reason: Insomnia Stop: 11/23/18 02:37 Last Admin: 09/28/18 21:41 Dose: 5 mg General: demented HEENT: NC/AT Neck: Supple Lungs: CTAB Cardiovascular: Normal S1, Normal S2 Abdomen: soft, non-tender Extremities: clear Neurological: no change Internal Medicine Assmt/Plan - Assessment Assessment: severe agitation bipolar disease h/o dementia h/o arthritis h/o htn h/o hyperlipidemia - Plan Plan: as per psych will monitor Nutritional Asmnt/Malnutr-PDOC - Dietary Evaluation Malnutrition Findings (Please click <Entered> for more info): Nutritional Asmnt/Malnutrition Start: 09/28/18 12: 42 Text: Status: Complete Freq: Protocol: Document 09/28/18 12:42 RADHA (Rec: 09/28/18 12:48 RADHA [email or web address]) Nutritional Asmnt/Malnutrition Patient General Information Nutritional Screening Moderate Risk Diagnosis psychosis NOS Pertinent Medical Hx/Surgical Hx HTN, dyslipidemia, arthritis, dementia, bipolar disorder Per nurse note: COPD, dermatitis, generalized muscle weakness, atherosclerotic heart disease, age related osteoporosis, PVD, polyneuropathy, Alzheimer's disease Subjective Information Pt sleeping at time of visit. Nursing noted PO intake: 75- 100%. Current Diet Order/ Nutrition Support SHAHID; ensure pudding TID Pertinent Medications Os-leelee, vit D3, colace, pepcid , seroquel Pertinent Labs 09/23: Na 132, BUN 42, glucose 145, Alb 3.1 Nutritional Hx/Data Height 1.68 m Height (Calculated Centimeters) 167.6 Current Weight (lbs) 61.235 kg Weight (Calculated Kilograms) 61.2 Weight (Calculated Grams) 67798.0 [place] Body Weight 130 lb Body Mass Index (BMI) 21.7 Weight Status Approriate GI Symptoms GI Symptoms None Last BM 09/28 Difficult in: None Food Allergies No Skin Integrity/Comment: itching, intact, esequiel 15 Current %PO Good (75-100%) Estimated Nutritional Goals BEE in Kcals: Using Current wt Calories/Kcals/Kg 25-30 Kcals Calculated 3766-0001 Protein: Using Current wt Protein g/k.0 Protein Calculated 61 g Fluid: ml 1519-6510 (1 ml/kcal) Nutritional Problem 1. Problem Problem no nutrition dx at this time Malnutrition Alert Is there a minimum of two criteria No selected? Query Text:Check all the applicable criteria. A minimum of two criteria are recommended for diagnosis of either severe or non-severe malnutrition. Malnutrition Related to Morbid Obesity Malnutrition related to morbid obesity No Intervention/Recommendation Comments 1. Continue with SHAHID diet and ensure pudding TID as ordered 2. Consider starting CCHO diet if blood glucose continues to stay above normal limits 3. Monitor PO intake, wt, labs and skin integrity 4. F/U as moderate risk in 3-5 days, 10/01-10/03 Expected Outcomes/Goals Expected Outcomes/Goals 1. PO intake to continue meeting at least 75% of all meals 2. Wt stability, skin to remain intact, and nutrition related labs to approach normal limits Reviewed by Katelyn Abdalla RD
--- NOTE | 2018-10-02 20:24 | Progress Notes ---
DATE: 10/01/2018 PSYCHIATRIC PROGRESS NOTE SUBJECTIVE: Chart reviewed and the patient interviewed. Also, discussed the patient's condition with the staff and reviewed the records and labs. The patient's affect is brighter. The patient is less agitated and she is cooperative with her treatment. The patient also denies any intention to harm herself or others. Also, easier to redirect her. The patient also is compliant with taking her medications with no side effects of medications. ASSESSMENT: The patient is less agitated and less irritable. TREATMENT PLAN: Plan is to discharge the patient today to [facility] with a plan to monitor her behavior and her condition closely in [facility]. JOB# [id number]
--- NOTE | 2018-10-03 00:56 | Discharge Summary ---
DATE OF DISCHARGE: 10/02/2018 PATIENT'S AGE: 83. SEX: Female. PHYSICIAN: Dr. Garcia. PRIMARY DIAGNOSIS: Unspecified psychosis. MEDICAL DIAGNOSES 1. Hypertension. 2. Dyslipidemia. 3. Arthritis. REASON FOR HOSPITALIZATION: The patient was admitted to the hospital because of verbal abuse to staff and was yelling and striking out at staff and she was easily agitated. HOSPITAL COURSE: The patient continued to be anxious and in irritable mood. The patient also was easily agitated and needed lots of redirections. She was resisting care and at times was refusing to take medications. The patient continued to take BuSpar in a dose of 10 mg twice a day. She also was getting Seroquel and the dose adjusted to 25 mg twice a day. Gradually, the patient's affect was brighter. The patient was less agitated and less irritable and was easy to redirect her and the patient was discharged from the hospital. The patient had no major medical problems run in the hospital and no major blood abnormalities. AFTER DISCHARGE PLANS: The patient discharged from the hospital and returned to [facility] with plans for outpatient treatment there. EXPECTED OUTCOME AFTER DISCHARGE: Fair if the patient continues to follow up with discharge plans and if takes her medications. JOB# [id number]
== END 2018-10-02 21:06 | DRG 885 ==
LOC: ER 23:45 → GERO 09-24 01:45
PROVIDERS: ADMIT Psychiatry & Neurology Psychiatry; ATTEND Psychiatry & Neurology Psychiatry
DX: F29 Unspecified psychosis not due to a substance or known physiological condition (principal); F03.90 Unspecified dementia, unspecified severity, without behavioral disturbance, psychotic disturbance, mood disturbance, and anxiety; E78.5 Hyperlipidemia, unspecified; I10 Essential (primary) hypertension; M19.90 Unspecified osteoarthritis, unspecified site; F41.9 Anxiety disorder, unspecified; Z88.2 Allergy status to sulfonamides; Z88.8 Allergy status to other drugs, medicaments and biological substances; Z82.49 Family history of ischemic heart disease and other diseases of the circulatory system
CPT/HCPCS: 36415-UA; 80053-TC; 80061-TC; 80307; 80320-TC; 80329-TC; 81001-TC; 83036-90; 84443-TC; 84484-TC; 85025-TC; 86592-TC; 93005; Z7610